=== PATIENT | female | born 1945 | race Caucasian/White ===

== ENCOUNTER 2018-01-31 00:02 | Inpatient (IN) | payer MEDICARE ==
[2018-01-31 01:22] LABS: Protime INR 1.37
[2018-01-31 01:23] LABS: Absolute Lymphocytes (CBC) 0.1 K/uL (0.7-4.9); Absolute Monocytes 0.1 K/uL (0.1-1.3); Absolute Neutrophil 1.4 K/uL (1.8-8.0); Basophils % 0.6 % (0-1.3); Eosinophils % 0.9 % (0-4.4); Hematocrit 28.1 % (36.0-45.0); Lymphocytes % 8.8 % (15.3-44.8); MCH 23.4 pg (27.0-35.0); MCV 76.4 fL (80-100); MPV 8.8 fL (7.6-11.3); RBC Red Blood Cell Count 3.68 M/uL (3.86-4.86)
[2018-01-31] MEDS ORDERED: ACETAMINOPHEN 325 MG TABLET ONE (01:24)
[2018-01-31] MEDS ORDERED: NA CHLORIDE 0.9% 1,000 ML ONE (01:25)
[2018-01-31] MEDS ORDERED: PIPER/TAZO/NS 3.375gm 3.375 GM/100 ML BAG ONE ×2 (01:25→06:30)
[2018-01-31 01:31] LABS: Urine Culture Reflex Order REFLEXED
[2018-01-31 01:31] LABS: Urine Blood 1+ (NEG); Urine Glucose NEGATIVE (NEG); Urine Protein TRACE (NEG); Urine pH 5.5 (5.0-7.0)
[2018-01-31 01:33] LABS: Urine Bacteria >50 /HPF (<20)
[2018-01-31 01:34] LABS: Urine RBC <5 /HPF (NONE SEEN)
[2018-01-31 01:44] LABS: ALT/SGPT 23 U/L (12-78); AST/SGOT 53 U/L (15-37); Albumin 2.7 g/dL (3.4-5.0); Alkaline Phosphatase 116 U/L (45-117); BUN Blood Urea Nitrogen 11 mg/dL (7-18); Bicarbonate 24 mmol/L (21-32); Bilirubin Direct 0.5 mg/dL (0-0.2); Bilirubin Total 0.9 mg/dL (0.2-1.0); CKMB Creatine Kinase MB < 1.0 ng/mL (0.3-3.6); Creatine Phosphokinase 93 U/L (26-192); Glucose Level 91 mg/dL (74-106); Lipase 493 U/L (73-393); Potassium 3.3 mmol/L (3.5-5.1); Protein, Total 6.4 g/dL (6.4-8.2); Sodium Level 141 mmol/L (136-145); Troponin (Emerg Dept Use Only) < 0.02 ng/mL (0.0-0.045)
[2018-01-31 02:17] LABS: Platelet Estimate DECR; Urine White Blood Cell Casts OK
[2018-01-31 02:18] LABS: Anisocytosis 1+; Blood Morphology Comment NOTED (NOT SEEN)
[2018-01-31] MEDS ORDERED: NA CHLORIDE 0.9% 500 ML ONE (02:21)
--- NOTE | 2018-01-31 03:50 | EDPHYS ---
Physician Documentation [facility] Name: Kady Gomez Age: 72 yrs Sex: Female : 1945 Arrival Date: 01/31/2018 Time: 00:05 Bed 8 Private MD: ED Physician Ilir Pizano HPI: 01/31 02:36 This 72 yrs old Female presents to ER via EMS with complaints of fever. gs 02:36 Onset: The symptoms/episode began/occurred yesterday. Modifying factors: there are no gs obvious modifying factors. Associated signs and symptoms: Pertinent positives: dysuria. Severity of symptoms: At their worst the symptoms were moderate in the emergency department the symptoms are unchanged. The patient has experienced similar episodes in the past, a few times. The patient has not recently seen a physician. Historical: - Allergies: 00:21 butorphanol tartrate; tl3 00:21 Cephalexin; tl3 00:21 Levofloxacin; tl3 00:21 Tramadol HCl; tl3 - Home Meds: 00:21 citalopram oral [Active]; Enalapril Oral [Active]; tl3 - PMHx: 00:21 Cirrhosis; Anemia; Hypertension; tl3 - PSHx: 00:21 Hip Replacement; tl3 - Immunization history:: Adult Immunizations unknown. - Social history:: Smoking status: unknown. - Ebola Screening: : No symptoms or risks identified at this time. ROS: 02:36 All other systems are negative. gs Exam: 02:36 Head/Face: Normocephalic, atraumatic. Eyes: Pupils equal round and reactive to light, gs extra-ocular motions intact. Lids and lashes normal. Conjunctiva and sclera are non-icteric and not injected. Cornea within normal limits. Periorbital areas with no swelling, redness, or edema. ENT: Nares patent. No nasal discharge, no septal abnormalities noted. Tympanic membranes are normal and external auditory canals are clear. Oropharynx with no redness, swelling, or masses, exudates, or evidence of obstruction, uvula midline. Mucous membranes moist. Neck: Trachea midline, no thyromegaly or masses palpated, and no cervical lymphadenopathy. Supple, full range of motion without nuchal rigidity, or vertebral point tenderness. No Meningismus. Chest/axilla: Normal chest wall appearance and motion. Nontender with no deformity. No lesions are appreciated. 02:36 Constitutional: The patient appears alert, awake. 02:36 Cardiovascular: Rate: tachycardic, Rhythm: regular, Pulses: no pulse deficits are appreciated. 02:36 ECG was reviewed by the Attending Physician. 02:39 Respiratory: Lungs have equal breath sounds bilaterally, clear to auscultation and gs percussion. No rales, rhonchi or wheezes noted. No increased work of breathing, no retractions or nasal flaring. Abdomen/GI: Soft, non-tender, with normal bowel sounds. No distension or tympany. No guarding or rebound. No evidence of tenderness throughout. Back: No spinal tenderness. No costovertebral tenderness. Full range of motion. Skin: Warm, dry with normal turgor. Normal color with no rashes, no lesions, and no evidence of cellulitis. MS/ Extremity: Pulses equal, no cyanosis. Neurovascular intact. Full, normal range of motion. Neuro: Awake and alert, GCS 15, oriented to person, place, time, and situation. Cranial nerves II-XII grossly intact. Motor strength 5/5 in all extremities. Sensory grossly intact. Cerebellar exam normal. Normal gait. Vital Signs: 00:21 BP 118 / 48; Pulse 99; Resp 18; Temp 100.6(O); Pulse Ox 98% ; tl3 01:34 BP 129 / 52; Pulse 92; Resp 18; Pulse Ox 99% on R/A; mg2 02:09 BP 124 / 53; Pulse 95; Resp 18; Temp 101.6(O); Pulse Ox 100% on R/A; mg2 04:36 BP 109 / 50; Pulse 91; Resp 19 S; Temp 99.7(O); Pulse Ox 100% on R/A; jd3 MDM: 00:32 Patient medically screened. gs 02:39 Differential diagnosis: pneumonia UTI, sepsis. Data reviewed: vital signs, nurses gs notes. Response to treatment: the patient's symptoms have mildly improved after treatment, and as a result, I will admit patient. 01/31 00:40 Order name: Basic Metabolic Panel; Complete Time: 02:10 01/31 00:40 Order name: Blood Culture Adult (2) 01/31 00:40 Order name: CBC with Diff; Complete Time: 03:51 01/31 00:40 Order name: Ckmb; Complete Time: 02:10 01/31 00:40 Order name: CPK; Complete Time: 02:10 01/31 00:40 Order name: Lactate; Complete Time: 02:10 01/31 00:40 Order name: LFT's; Complete Time: 02:10 01/31 00:40 Order name: Lipase; Complete Time: 02:10 01/31 00:40 Order name: Procalcitonin; Complete Time: 03:51 01/31 00:40 Order name: Protime (+inr); Complete Time: 02:10 01/31 00:40 Order name: Troponin (emerg Dept Use Only); Complete Time: 02:10 01/31 00:40 Order name: Urine Microscopic Only; Complete Time: 02: 01/31 01:03 Order name: Urine Dipstick--Ancillary (enter results); Complete Time: 02:10 al 01/31 01:26 Order name: CBC Smear Scan; Complete Time: 03:51 EDCO 01/31 00:40 Order name: Chest Single View XRAY 01/31 00:40 Order name: Accucheck; Complete Time: 01:33 gs 01/31 00:40 Order name: Cardiac monitoring; Complete Time: 01: 01/31 00:40 Order name: EKG - Nurse/Tech; Complete Time: 01: gs 01/31 00:40 Order name: IV Saline Lock - Large Bore; Complete Time: 01: 01/31 00:40 Order name: Labs collected and sent; Complete Time: : 01/31 00:40 Order name: O2 Per Protocol; Complete Time: : gs 01/31 01:36 Order name: Urine Culture EDMS 01/31 03:52 Order name: Magnesium 01/31 04:16 Order name: Consistent Carb (ADA) 1800 Pillo EDMS 01/31 00:40 Order name: O2 Sat Monitoring; Complete Time: :33 01/31 00:40 Order name: Urine Dipstick-Ancillary (obtain specimen); Complete Time: 01:33 gs Administered Medications: 01:32 Drug: Zosyn 3.375 grams Route: IVPB; Infused Over: 60 mins; Site: left forearm; mg2 02:30 Follow up: Response: No adverse reaction; IV Status: Completed infusion jd3 01:32 Not Given (Patient Refused): Tylenol 650 mg PO once mg2 01:33 Drug: NS 0.9% 1000 ml Route: IV; Rate: 1 bolus; Site: left forearm; mg2 02:30 Follow up: Response: No adverse reaction; IV Status: Completed infusion jd3 02:08 Drug: Tylenol 325 mg Route: PO; mg2 03:00 Follow up: Response: No adverse reaction jd3 02:18 Drug: NS 0.9% 500 ml Volume: 500 ml; Route: IV; Rate: 1 bolus; Site: left forearm; mg2 03:15 Follow up: Response: No adverse reaction; IV Status: Completed infusion jd3 04:35 Drug: Potassium Effervescent Tablet 50 mEq Route: PO; jd3 05:00 Follow up: Response: No adverse reaction jd3 Point of Care Testing: Guaiac: 01:05 Stool Guaiac: Negative; Stool Hemoccult Control: Pass; tl3 Disposition: 01/31/18 03:50 Hospitalization ordered by Lupe Callaway for Inpatient Admission. Preliminary diagnosis are Sepsis due to Escherichia coli [E. coli], Cystitis. - Bed requested for Telemetry/MedSurg (Inpatient). - Status is Inpatient Admission. jd3 - Condition is Stable. - Problem is new. - Symptoms have improved. UTI on Admission? Yes Critical care time excluding procedures: 03:33 Critical care time: Bedside Care: 10 minutes, Consultation: 10 minutes, Family gs Intervention: 10 minutes. Total time: 30 minutes Signatures: Dispatcher [employer] Mary Tabares RN RN Ilir Pizano MD MD gs Davies, Jonathon, RN RN jd3 Nakia Bowman RN RN tl3 Guanako Martinez RN RN mg2 Corrections: (The following items were deleted from the chart) 04:24 03:50 Hospitalization Ordered by A Cesia VARGAS for Inpatient Admission. Preliminary cg diagnosis is Sepsis due to Escherichia coli [E. coli]; Cystitis. Bed requested for Telemetry/MedSurg (Inpatient). Status is Inpatient Admission. Condition is Stable. Problem is new. Symptoms have improved. UTI on Admission? No. gs 05:14 04:24 01/31/2018 03:50 Hospitalization Ordered by A Cesia VARGAS for Inpatient Admission. gs Preliminary diagnosis is Sepsis due to Escherichia coli [E. coli]; Cystitis. Bed requested for Telemetry/MedSurg (Inpatient). Status is Inpatient Admission. Condition is Stable. Problem is new. Symptoms have improved. UTI on Admission? No. cg 05:18 05:14 01/31/2018 03:50 Hospitalization Ordered by A Cesia VARGAS for Inpatient Admission. jd3 Preliminary diagnosis is Sepsis due to Escherichia coli [E. coli]; Cystitis. Bed requested for Telemetry/MedSurg (Inpatient). Status is Inpatient Admission. Condition is Stable. Problem is new. Symptoms have improved. UTI on Admission? Yes. gs
--- NOTE | 2018-01-31 03:50 | ER ---
Nurse's Notes [facility] Name: Kady Gomez Age: 72 yrs Sex: Female : 1945 Arrival Date: 01/31/2018 Time: 00:05 Bed 8 Private MD: Diagnosis: Sepsis due to Escherichia coli [E. coli];Cystitis Presentation: 01/31 00:10 Presenting complaint: EMS states: pt has been weak and unable to get up out of her tl3 chair since about 3 pm. Has low grade temp 100.6, with hx of cirrhosis, Anemia, HTN and blood in stool. Had blood in stool on , but it has cleared up and she has had normal stools since. Transition of care: patient was not received from another setting of care. Onset of symptoms was January 31, 2018. Risk Assessment: Do you want to hurt yourself or someone else? Patient reports no desire to harm self or others. Initial Sepsis Screen: Does the patient meet any 2 criteria? No. Patient's initial sepsis screen is negative. Does the patient have a suspected source of infection? No. Patient's initial sepsis screen is negative. Care prior to arrival: None. 00:10 Method Of Arrival: EMS: [facility] tl3 00:10 Acuity: RANDOLPH 3 tl3 Triage Assessment: 00:21 General: Appears in no apparent distress. slender, well groomed, well developed, tl3 Behavior is calm, cooperative, appropriate for age. Pain: Denies pain. EENT: No deficits noted. Neuro: No deficits noted. Level of Consciousness is awake, alert, obeys commands, Oriented to person, place, time, situation, Appropriate for age. Cardiovascular: Patient's skin is warm and dry. Rhythm is regular. Respiratory: Airway is patent Respiratory effort is even, unlabored, Respiratory pattern is regular, symmetrical. GI: Reports stooled and urinated in brief because she was too weak to get up go to the restroom, had bloody stool on , but normal stools since. : Reports burning with urination. Derm: No signs and/or symptoms reported regarding the dermatologic system. Skin is jaundiced. Musculoskeletal: Reports weakness in generalized. Historical: - Allergies: 00:21 butorphanol tartrate; tl3 00:21 Cephalexin; tl3 00:21 Levofloxacin; tl3 00:21 Tramadol HCl; tl3 - Home Meds: 00:21 citalopram oral [Active]; Enalapril Oral [Active]; tl3 - PMHx: 00:21 Cirrhosis; Anemia; Hypertension; tl3 - PSHx: 00:21 Hip Replacement; tl3 - Immunization history:: Adult Immunizations unknown. - Social history:: Smoking status: unknown. - Ebola Screening: : No symptoms or risks identified at this time. Screenin:57 Abuse screen: Denies threats or abuse. Denies injuries from another. Nutritional mg2 screening: No deficits noted. Tuberculosis screening: No symptoms or risk factors identified. Fall Risk IV access (20 points). 01:05 Sepsis Screening: . Infection: Patient has suspected or documented infection. SIRS - tl3 Systemic Inflammatory Response Syndrome: 2 or more indicates positive screen: [heart rate greater than 90 beats per minute] Patient has a negative screen for severe sepsis based on SIRS criteria. Organ Dysfunction: One or more within 3 days of new infection:. Assessment: 01:05 Reassessment: No changes from previously documented assessment. tl3 02:38 Reassessment: Patient appears in no apparent distress at this time. Patient and/or mg2 family updated on plan of care and expected duration. Pain level reassessed. Patient is alert, oriented x 3, equal unlabored respirations, skin warm/dry/pink. 02:52 Reassessment: No changes from previously documented assessment. Patient and/or family jd3 updated on plan of care and expected duration. Pain level reassessed. Patient is alert, oriented x 3, equal unlabored respirations, skin warm/dry/pink. report received from Roxie SANTOS. 03:45 Reassessment: No changes from previously documented assessment. Patient and/or family jd3 updated on plan of care and expected duration. Pain level reassessed. Patient is alert, oriented x 3, equal unlabored respirations, skin warm/dry/pink. 04:36 Reassessment: No changes from previously documented assessment. Patient and/or family jd3 updated on plan of care and expected duration. Pain level reassessed. Patient is alert, oriented x 3, equal unlabored respirations, skin warm/dry/pink. Vital Signs: 00:21 BP 118 / 48; Pulse 99; Resp 18; Temp 100.6(O); Pulse Ox 98% ; tl3 01:34 BP 129 / 52; Pulse 92; Resp 18; Pulse Ox 99% on R/A; mg2 02:09 BP 124 / 53; Pulse 95; Resp 18; Temp 101.6(O); Pulse Ox 100% on R/A; mg2 04:36 BP 109 / 50; Pulse 91; Resp 19 S; Temp 99.7(O); Pulse Ox 100% on R/A; jd3 ED Course: 00:05 Patient arrived in ED. mg2 00:09 Nakia Bowman, RN is Primary Nurse. tl3 00:12 Triage completed. tl3 00:14 Ilir Pizano MD is Attending Physician. gs 00:21 Arm band placed on right wrist. tl3 00:57 No provider procedures requiring assistance completed. Inserted saline lock: 22 gauge mg2 in left forearm, using aseptic technique. Blood collected. 00:57 Patient has correct armband on for positive identification. Pulse ox on. NIBP on. mg2 01:05 Straight cath inserted, using sterile technique, 16 Fr. Specimen obtained. vaginal tl3 bleeding noted with inspection prior to straight cath. 01:05 Warm blanket given. Head of bed elevated. Cleaned of incontinence. pt was incontinent tl3 for stool and urine. 01:11 X-ray(s) taken. tl3 01:20 X-ray completed. Portable x-ray completed in exam room. Patient tolerated procedure mh1 well. 01:21 Chest Single View XRAY In Process Unspecified. EDMS 02:52 Primary Nurse role handed off by Nakia Bowman RN jd3 02:52 Freeman Farah RN is Primary Nurse. jd3 03:46 Lupe Callaway MD is Hospitalizing Provider. gs 05:00 Patient admitted, IV remains in place. jd3 Administered Medications: 01:32 Drug: Zosyn 3.375 grams Route: IVPB; Infused Over: 60 mins; Site: left forearm; mg2 02:30 Follow up: Response: No adverse reaction; IV Status: Completed infusion jd3 01:32 Not Given (Patient Refused): Tylenol 650 mg PO once mg2 01:33 Drug: NS 0.9% 1000 ml Route: IV; Rate: 1 bolus; Site: left forearm; mg2 02:30 Follow up: Response: No adverse reaction; IV Status: Completed infusion jd3 02:08 Drug: Tylenol 325 mg Route: PO; mg2 03:00 Follow up: Response: No adverse reaction jd3 02:18 Drug: NS 0.9% 500 ml Volume: 500 ml; Route: IV; Rate: 1 bolus; Site: left forearm; mg2 03:15 Follow up: Response: No adverse reaction; IV Status: Completed infusion jd3 04:35 Drug: Potassium Effervescent Tablet 50 mEq Route: PO; jd3 05:00 Follow up: Response: No adverse reaction jd3 Point of Care Testing: Guaiac: 01:05 Stool Guaiac: Negative; Stool Hemoccult Control: Pass; tl3 Outcome: 03:50 Decision to Hospitalize by Provider. 04:58 Admitted to Med/surg accompanied by tech, via stretcher, room 208, with chart, Report jd3 called to Hlida SANTOS 04:58 Instructed on the need for admit, Demonstrated understanding of instructions. 04:59 Condition: stable jd3 05:18 Patient left the ED. jd3 Signatures: Dispatcher [employer] EDMS Marti Stokes 1 Ilir Pizano MD MD Freeman Farah RN RN jd3 Nakia Bowman RN RN tl3 Guanako Martinez RN RN mg2 Corrections: (The following items were deleted from the chart) 00:26 00:21 GI: Reports stooled and urinated in brief because she was too weak to get up tl3 tl3 01:11 01:05 Urine collected: straight cath specimen, cloudy, Amount Returned: 150mL vaginal tl3 bleeding noted in preparation for straight cath tl3 04:40 04:36 BP 109 / 50; Pulse 91bpm; Resp 92bpm; Spontaneous; Pulse Ox 100% RA; jd3 jd3 04:50 04:36 BP 109 / 50; Pulse 91bpm; Resp 19bpm; Spontaneous; Pulse Ox 100% RA; jessed3 jd3 04:59 04:58 Admitted to Med/surg accompanied by nurse, via stretcher, room 208, with chart, jd3 Report called to Hilda mcdonough
[2018-01-31] MEDS ORDERED: ACETAMINOPHEN 500 MG TAB PO PRN (04:07)
[2018-01-31] MEDS ORDERED: POTASSIUM 25 MEQ EFFERV TAB ONE ×2 (04:31→04:34)
[2018-01-31] MEDS ORDERED: NA CHLORIDE 0.9% 1,000 ML IV SCH (05:00)
[2018-01-31] MEDS ORDERED: PIPER/TAZO/NS 3.375gm 3.375 GM/100 ML BAG IVPB SCH (06:00)
[2018-01-31 06:01] VITALS: BMI 21.9
[2018-01-31] MEDS ORDERED: INFLUENZA VACCINE (for 3y+) 0.5 ML DOSE IMVAC ONE (08:00)
[2018-01-31] MEDS ORDERED: ONDANSETRON 4 MG/2 ML VIAL IV PRN (09:39)
[2018-01-31] MEDS ORDERED: PANTOPRAZOLE 40MG TABLET PO ONE (09:40)
[2018-01-31] MEDS: CITALOPRAM 10 MG TABLET PO SCH (10:39)
--- NOTE | 2018-01-31 10:39 | RAD REPORT ---
EXAM DESCRIPTION: RAD - Chest Single View - 01/31/2018 1:21 am CLINICAL HISTORY: FEVER Chest pain. COMPARISON: Chest Single View dated 03/29/2016; Chest Single View dated 03/27/2016; Chest Single View dated 03/25/2016; Chest Pa And Lat (2 Views) dated 11/21/2015 FINDINGS: Portable technique limits examination quality. The lungs are grossly clear. The heart is normal in size. No displaced fractures.Cervical spine hardw are plate noted. IMPRESSION: No acute intrathoracic process suspected.
[2018-01-31] MEDS: D5 0.9 NS 1,000 ML IV SCH ×2 (10:40→21:37)
[2018-01-31] MEDS: PIPER/TAZO/NS 3.375gm 3.375 GM/100 ML BAG IVPB SCH ×2 (14:01→21:36)
--- NOTE | 2018-01-31 21:04 | HP ---
Date of Admission: 01/31/2018 Chief Complaint: Chills and feeling weak. History Of Present Illness: This is a 72-year-old female patient with cirrhosis of liver, lives at [facility] with her , had one episode of rectal bleeding this week on . She did not have any associated abdominal pain, nausea, vomiting, hematemesis. The bleeding stopped on its own. She did not seek any medical attention for this. The patient says that she did have such bleeding problem i n the past but has not had any episode this year. After that bleeding problem subsided, she was doin g fine but last night all of a sudden she had episode of chills while she was sitting and she was anna vering really bad. At that same time, she was having extreme generalized weakness associated with chills and her tried to help her to get up to go to bed, to lie down, but because of her generalized weakness with these chills she was not able to do and she was brought into emergency room . After she was evaluated in the ER, she was admitted to the hospital with diagnosis of urinary trac t infection and possibility of sepsis. I saw her this morning. She was lying in bed, answering all the questions appropriately, did not appear to be confused at all. Medications: According to office records she takes Belsomra 10 mg at bedtime, citalopram 20 mg daily , Hemocyte-Plus 1 tablet p.o. daily, multivitamin daily. Propranolol 10 mg p.o. 2 times a day, hold if systolic blood pressure less than 120. Pantoprazole 40 mg p.o. daily and Zofran p.r.n. Review of Systems: GI: As mentioned above. Constitutional: As mentioned above. Genitourinary: The patient denies any urinary complaints like dysuria, hematuria, etc. All other systems reviewed and negative. Allergies: CEPHALEXIN, DEMEROL, TRAMADOL, ACCORDING TO OFFICE RECORD. ACCORDING TO HOSPITAL RECORD, SHE IS ALSO LISTED ALLERGIC TO LEVAQUIN. Past Medical History: Significant for pancytopenia, gastroesophageal reflux disease, biliary cirrhos is, hypertension, osteoarthritis at multiple sites, depression, allergic rhinitis, insomnia, iron def iciency anemia. For cirrhosis of liver, the patient was seeing Dr. Angela, [facility] in [place] i n the past but she decided not to see him anymore. Dr. Angela also had asked the patient to start th inking about liver transplant and the patient has decided not to pursue that and she no longer follow s up with him. Advance Directive: As per my discussion with the patient today, she does not want any CPR, defibrill ation or ventilator support and DNR order will be written in the chart. Past Surgical History: Liver biopsy in 2003, cholecystectomy, hip replacement, transsphenoidal resec tion of pituitary adenoma in the mid to late , right femur fracture 2010, carcinoma of vulva for w hich she had a vulvectomy done in 2010. Family History: Significant for glioblastoma, lung cancer, hypertension. Social History: Negative for smoking and alcohol use. She is a retired nurse and . Lives at home with . Physical Examination: Vital Signs: Her maximum temperature was 101.6 degrees Fahrenheit at 2:00 a.m. today, last temperatu re 98.4, pulse 68, respiratory rate 18, blood pressure 116/54, oxygen saturation 99%, height 5 feet 8 inches, weight 144 pounds. General: Awake, alert, oriented, not in distress. HEENT: Head atraumatic, normocephalic. Conjunctivae nonerythematous. Sclerae white. Mouth, no thr ush or edema noted. Ears/Nose, no mass, lesion, discharge noted. Neck: Supple. No JVD, lymph nodes, bruit, thyromegaly noted. Lungs: Bilateral good equal air entry. Clear to auscultation. No rhonchi. No rales. Heart: Normal heart sounds, no murmur or gallop. Abdomen: Soft, bowel sounds normal. No guarding, rigidity, tenderness, mass, hepatosplenomegaly, dis tention, or bruit noted. Extremities: No leg edema. No calf tenderness. Skin: No rash, ulcer, cellulitis. Lymphatics: No lymph node enlargement in neck, supraclavicular, infraclavicular region. Neuro: No focal neurological deficit. Chest: Unremarkable. External Genitalia: Deferred. Rectal: Deferred. Laboratory Data: White count 1.7, hemoglobin 8.6, platelets 82, INR 1.37. Sodium 141, potassium 3.3 , chloride 107, bicarb 24, BUN 11, creatinine 1.10, glucose 91, total bilirubin 0.5, SGOT 53, SGPT 23 , alkaline phosphatase 116, troponin less than 0.02, lipase 493, albumin 2.7, procalcitonin 7.19. La ctic acid 3.0 on the first one, second set 2.3. Magnesium 1.9. Urinalysis positive for nitrite, est erase 1+, WBC more than 50, bacteria more than 50. Impression: 1.Urinary tract infection. 2.Rule out sepsis. 3.Pancytopenia. 4.Hypokalemia. 5.Biliary cirrhosis. 6.Hypertension. 7.Gastroesophageal reflux disease. 8.Osteoarthritis, multiple sites. 9.Depression. 10.Insomnia. 11.Iron deficiency anemia. Plan: Admit the patient to hospital for further evaluation and management of this problem. The tejas ent is appropriate for inpatient and is expected to spend 2 midnights in hospital. We will continue her home medications per order in the chart. Air mattress was ordered. SCD was ordered for DVT prop hylaxis. We will consult Physical Therapy to help ambulate the patient. DNR order was written in chart per patient's decision. Empiric antibiotic Zosyn will be continued at this point and we will follow up on culture results and depending on the culture results, we will decide culture specific a ntibiotic. IV fluid will be given per order. We will repeat blood work tomorrow. When I saw the aleksey iverson, she had liquid stool inside her pull-ups and this was covering her perineal area. Nurse was m mar aware of that and in fact, the patient did not even recognize that she had this bowel incontinenc e and she did not report anything until I saw it on my exam. We will order a stool for clostridium d ifficile and stool culture as well. For her pancytopenia, please make a note that this is her chroni c problem due to her underlying cirrhosis of liver, does not require any intervention. About 6 month s ago in July 2017 on outpatient basis her white count was 2.1, hemoglobin was 10.4, platelets 126 a t that time. We will consider blood transfusion if it becomes necessary during this hospitalization. There is no evidence of any active GI bleeding problem. DMITRI/MODL Voice ID: [id number]
[2018-01-31] MEDS: PROPRANOLOL HCL 10 MG TAB PO SCH (21:35)
[2018-02-01] MEDS: PIPER/TAZO/NS 3.375gm 3.375 GM/100 ML BAG IVPB SCH ×3 (06:00→21:20)
[2018-02-01 06:16] LABS: Albumin 2.4 g/dL (3.4-5.0); Bilirubin Total 0.8 mg/dL (0.2-1.0); Magnesium 2.1 mg/dL (1.8-2.4); Protein, Total 5.6 g/dL (6.4-8.2)
[2018-02-01 06:17] LABS: Absolute Lymphocytes (CBC) 0.3 K/uL (0.7-4.9); Absolute Monocytes 0.1 K/uL (0.1-1.3); Absolute Neutrophil 0.9 K/uL (1.8-8.0); Basophils % 1.4 % (0-1.3); Eosinophils % 1.3 % (0-4.4); Hematocrit 24.4 % (36.0-45.0); Lymphocytes % 19.8 % (15.3-44.8); MCH 23.4 pg (27.0-35.0); MCV 77.2 fL (80-100); MPV 9.7 fL (7.6-11.3); RBC Red Blood Cell Count 3.17 M/uL (3.86-4.86)
[2018-02-01] MEDS: PANTOPRAZOLE 40MG TABLET PO SCH (06:21)
[2018-02-01 06:47] LABS: Anisocytosis 2+; Blood Morphology Comment NOTED (NOT SEEN); Hypochromasia 2+; Platelet Estimate DECR; Urine White Blood Cell Casts OK
[2018-02-01] MEDS ORDERED: VANCOMYCIN 500 MG in NA CHLORIDE 0.9% 100 ML IVPB SCH (09:00)
[2018-02-01] MEDS ORDERED: VANCOMYCIN 1.75 GM in NA CHLORIDE 0.9% 500 ML IVPB ONE (09:00)
--- NOTE | 2018-02-01 10:10 | EKG ---
Test Date: 2018-01-31 Test Time: 01:29:52 Customer Service Sales Consultant: MG MEASUREMENT RESULTS: Intervals: Rate: 95 MT: 258 QRSD: 100 QT: 472 QTc: 593 Dixon: P: MT: 258 QRS: 9 T: 42 INTERPRETIVE STATEMENTS: Sinus rhythm with 1st degree AV block Nonspecific T wave abnormality Prolonged QT Abnormal ECG Compared to ECG 03/17/2011 18:14:48 First degree AV block now present T-wave abnormality now present Prolonged QT interval now present Electronically Signed On 02-01-18 10:09:45 CDT by Davian Deluca
[2018-02-01] MEDS: CITALOPRAM 10 MG TABLET PO SCH (10:45)
[2018-02-01] MEDS: PROPRANOLOL HCL 10 MG TAB PO SCH ×2 (10:45→20:50)
[2018-02-01] MEDS: FE SULF/FA/VIT B COMP & C TAB PO SCH (10:45)
--- NOTE | 2018-02-01 11:51 | PN ---
Date of Progress Note: 02/01/2018 Subjective: The patient was seen this morning for followup. She was lying in bed, not in distress. Denies any abdominal pain, nausea, or vomiting. No shortness of breath. Reports that her appetite was good yesterday. Physical Examination: Vital Signs: Reviewed. Last temperature 98.1, pulse 64, respiratory rate 16, and blood pressure 119/51. HEENT: Unremarkable. Lungs: Clear to auscultation. Heart: Sounds normal. Abdomen: Soft. Bowel sounds normal. No guarding, rigidity, tenderness, or distention. Extremities: No leg edema. Laboratory Data: White count 1.4, hemoglobin 7.4, platelets 69, and neutrophils 68%. Sodium 145, potassium 4, chloride 116, bicarb 23, BUN 13, creatinine 0.90, glucose 90, and magnesium 2.1. SGOT 48, total bilirubin 0.8. Procalcitonin 25.57. Urine culture pending. Blood culture negative so far. Impression: 1. Urinary tract infection. 2. Rule out sepsis. 3. Pancytopenia. 4. Biliary cirrhosis. Plan: We will go ahead and continue current empiric antibiotics, which is Zosyn and add Vancomycin. Continue IV fluid. Monitor the patient's hemoglobin. If hemoglobin drops less than 7, we will consider blood transfusion. Physical Therapy to help ambulate the patient. We will repeat blood work tomorrow morning. DMITRI/MODL Voice ID: [id number] Report ID: [id number] GURINDER
[2018-02-01] MEDS: D5 0.9 NS 1,000 ML IV SCH ×2 (12:29→20:51)
[2018-02-02] MEDS: PIPER/TAZO/NS 3.375gm 3.375 GM/100 ML BAG IVPB SCH ×3 (05:10→21:10)
[2018-02-02] MEDS: PANTOPRAZOLE 40MG TABLET PO SCH (05:34)
[2018-02-02 06:44] LABS: Absolute Lymphocytes (CBC) 0.3 K/uL (0.7-4.9); Absolute Monocytes 0.1 K/uL (0.1-1.3); Absolute Neutrophil 0.8 K/uL (1.8-8.0); Basophils % 1.5 % (0-1.3); Eosinophils % 3.7 % (0-4.4); Hematocrit 22.6 % (36.0-45.0); MCH 23.4 pg (27.0-35.0); MPV 10.6 fL (7.6-11.3); Monocytes % 7.2 % (3.3-12.3); RBC Red Blood Cell Count 2.93 M/uL (3.86-4.86)
[2018-02-02 07:01] LABS: Magnesium 1.8 mg/dL (1.8-2.4); Potassium 3.9 mmol/L (3.5-5.1)
[2018-02-02] MEDS ORDERED: D5 0.9 NS 1,000 ML IV SCH (08:00)
[2018-02-02] MEDS: FE SULF/FA/VIT B COMP & C TAB PO SCH (09:45)
[2018-02-02] MEDS: CITALOPRAM 10 MG TABLET PO SCH (09:45)
[2018-02-02] MEDS: VANCOMYCIN 1.25 GM in NA CHLORIDE 0.9% 250 ML IVPB SCH (09:46)
[2018-02-02] MEDS: PROPRANOLOL HCL 10 MG TAB PO SCH ×2 (10:19→21:11)
--- NOTE | 2018-02-02 11:16 | PN ---
Date of Progress Note: 02/02/2018 Subjective: The patient was seen this morning for followup. No new complaints or problems reported by patient. Overall, she feels better compared to how she was when she first came in. She reports that yesterday she did participate with physical therapy. Denies any abdominal pain, nausea, vomiting, shortness of breath. Appetite is fair to good she describes. Physical Examination: Vital signs: Reviewed. Last temperature 98.2, pulse 63, respiratory rate 18, blood pressure 134/63, maximum temperature in last 24 hours is 100.1. General: The patient lying in bed, not in distress. HEENT: Unremarkable. Lungs: Clear to auscultation. Heart: Sounds normal. Abdomen: Soft. Bowel sounds normal. No guarding, rigidity, tenderness, distention. Extremity: No leg edema. Laboratory Data: White count 1.3, yesterday it was 1.4; hemoglobin 6.8, yesterday it was 7.4, upon admission it was 8.6; platelets today 81, yesterday it was 69, upon admission it was 82. Differential on the white count 66% is neutrophils. Sodium 144, potassium 3.9, chloride 115, bicarb 23, BUN 14, creatinine 1, glucose 88, magnesium 1.8, Procalcitonin 14.61 and it was 25.57 yesterday. Urine culture is growing E coli. Blood cultures negative so far. E coli is sensitive to Zosyn that the patient is currently on. Impression: 1. Urinary tract infection. 2. Rule out sepsis. 3. Pancytopenia. 4. Biliary cirrhosis. Plan: The patient's hemoglobin is lower today compared to yesterday. We will go ahead and order 2 units of blood transfusion and reduce IVF to 30cc/hr. Platelet count is low but stable. Absolute neutrophil count is more than 500. No need for any Neupogen at this point, but we will continue to monitor that. The patient was placed on precaution yesterday where strict hand washing was advised. Procalcitonin level is better today. Vancomycin was added yesterday because the patient's procalcitonin level had gone up yesterday compared to admission and we will continue with this current combination, which is Zosyn and vancomycin together. I will see her tomorrow for followup. Details and plan of treatment discussed with her. DMITRI/MODL Voice ID: [id number] Report ID: [id number] GURINDER
[2018-02-02] MEDS ORDERED: NA CHLORIDE 0.9% 250 ML ONE (11:37)
[2018-02-02] MEDS ORDERED: FUROSEMIDE 20 MG/ 2ML VIAL IV ONE (17:00)
[2018-02-02 19:15] LABS: Hematocrit 29.2 % (36.0-45.0)
[2018-02-03] MEDS: PANTOPRAZOLE 40MG TABLET PO SCH (05:31)
[2018-02-03] MEDS: PIPER/TAZO/NS 3.375gm 3.375 GM/100 ML BAG IVPB SCH ×3 (05:38→21:29)
[2018-02-03 05:46] LABS: Absolute Lymphocytes (CBC) 0.4 K/uL (0.7-4.9); Absolute Monocytes 0.2 K/uL (0.1-1.3); Absolute Neutrophil 1.2 K/uL (1.8-8.0); Basophils % 0.7 % (0-1.3); Eosinophils % 3.7 % (0-4.4); Hematocrit 27.5 % (36.0-45.0); Lymphocytes % 20.8 % (15.3-44.8); MCH 24.1 pg (27.0-35.0); MCV 77.7 fL (80-100); MPV 10.1 fL (7.6-11.3); Monocytes % 10.6 % (3.3-12.3); RBC Red Blood Cell Count 3.54 M/uL (3.86-4.86)
[2018-02-03 05:50] LABS: Magnesium 1.6 mg/dL (1.8-2.4); Potassium 3.5 mmol/L (3.5-5.1)
[2018-02-03 06:15] LABS: Anisocytosis 1+; Blood Morphology Comment NOTED (NOT SEEN); Hypochromasia 1+; Macrocytosis 1+; Platelet Estimate DECR; Polychromasia SLIGHT; Urine White Blood Cell Casts OK
[2018-02-03] MEDS ORDERED: MAGNESIUM SULFATE 1 gm IVPB 1 GM/100 ML BAG IV ONE (06:21)
[2018-02-03] MEDS ORDERED: POTASSIUM 25 MEQ EFFERV TAB PO ONE (06:24)
--- NOTE | 2018-02-03 08:34 | PN ---
Date of Progress Note: 02/03/2018 History Of Present Illness: The patient was seen this morning for followup. She was sitting in the chair, feeling much better today. Yesterday, after 1 unit of blood transfusion, nurse contacted and informed me that after she completed blood transfusion, she noted that the patient was having wheezin g. Her IV fluid was at 30 cc/hour, but after this wheezing problem was reported, Lasix 20 mg IV x1 d ose was ordered and IV fluid was discontinued. The patient's condition has improved. This morning, she is feeling fine. She feels stronger and better than before as she reports. Physical Examination: Vital Signs: Reviewed. Last temperature 98.9, pulse 66, respiratory rate 18, blood pressure 163/65, oxygen saturation 95% on room air. HEENT: Unremarkable. Lungs: Bilateral good equal air entry. Presence of minimum right basal rales noted. Not any respir atory distress. No wheezing. Heart: Heart sounds normal. Abdomen: Soft. Bowel sounds normal. No guarding, rigidity, tenderness, or distention. Extremities: No leg edema. Laboratory Data: White count 1.8, hemoglobin 8.5, platelets 76. Sodium 144, potassium 3.5, chloride 113, bicarb 23, BUN 12, creatinine 0.90, glucose 79, magnesium 1.6, procalcitonin 8.43. Stool C dif f pending. Blood culture negative. Urine culture growing E. coli. Impression: 1.Urinary tract infection. 2.Pancytopenia. 3.Biliary cirrhosis. 4.Hypomagnesemia. Plan: We will go ahead and continue current medications, which is IV Zosyn and IV vancomycin. We wi ll probably continue vancomycin for another day or 2 days. Our plan is to possibly discharge her to go home on Thursday with oral antibiotics. We will probably plan to discharge her to go home with Bact rim. The patient's overall condition is improving very well. I have encouraged her to go ahead and ambulate. There is no need for second unit of blood transfusion considering hemoglobin is 8.5 today. Replace electrolyte per protocol. DMITRI/MODL Voice ID: [id number] Report ID: [id number]
[2018-02-03] MEDS: PROPRANOLOL HCL 10 MG TAB PO SCH ×2 (09:45→21:25)
[2018-02-03] MEDS: CITALOPRAM 10 MG TABLET PO SCH (09:46)
[2018-02-03] MEDS: FE SULF/FA/VIT B COMP & C TAB PO SCH (09:46)
[2018-02-03] MEDS: VANCOMYCIN 1.25 GM in NA CHLORIDE 0.9% 250 ML IVPB SCH (09:46)
[2018-02-04 05:32] LABS: Magnesium 1.8 mg/dL (1.8-2.4); Potassium 3.5 mmol/L (3.5-5.1)
[2018-02-04] MEDS ORDERED: MAGNESIUM SULFATE 1 gm IVPB 1 GM/100 ML BAG IV ONE (06:20)
[2018-02-04] MEDS ORDERED: POTASSIUM 25 MEQ EFFERV TAB PO ONE (06:21)
[2018-02-04] MEDS: PANTOPRAZOLE 40MG TABLET PO SCH (06:41)
[2018-02-04] MEDS: PIPER/TAZO/NS 3.375gm 3.375 GM/100 ML BAG IVPB SCH ×3 (06:42→20:42)
[2018-02-04 08:54] VITALS: O2SAT 96
[2018-02-04] MEDS: CITALOPRAM 10 MG TABLET PO SCH (10:23)
[2018-02-04] MEDS: FE SULF/FA/VIT B COMP & C TAB PO SCH (10:23)
[2018-02-04] MEDS: PROPRANOLOL HCL 10 MG TAB PO SCH ×2 (10:23→20:37)
[2018-02-04] MEDS: VANCOMYCIN 1.25 GM in NA CHLORIDE 0.9% 250 ML IVPB SCH (10:42)
--- NOTE | 2018-02-04 12:24 | PN ---
Date of Progress Note: 02/04/2018 Subjective: The patient was seen this morning for followup, lying in bed, not in any distress. Seun es any complaints. The patient reported that yesterday she did ambulate with physical therapy. Her appetite is good, but she does not like hospital food as she says. Denies any nausea, vomiting, abdo oliva pain. Reports having bowel movement yesterday. Physical Examination: Vital signs: Reviewed. She remains afebrile. Last temperature 98.4, pulse 62, respiratory rate 18, blood pressure 153/67. HEENT: Unremarkable. Lungs: Clear to auscultation. Heart: Sounds normal. Abdomen: Soft. Bowel sounds normal. No guarding, rigidity, tenderness, or distention. Extremities: No leg edema. Laboratory Data: Sodium 143, potassium 3.5, chloride 112, bicarb 25, BUN 13, creatinine 0.90, glucos e 82, magnesium 1.8. Stool C diff negative. Blood culture negative. Urine culture, E coli. Impression: 1.Urinary tract infection. 2.Pancytopenia. 3.Biliary cirrhosis. 4.Hypomagnesemia. Plan: We will go ahead and continue current medications. Continue current empiric vancomycin along with culture specific antibiotic which is Zosyn. We will repeat blood work tomorrow morning includin g procalcitonin and CBC. Ambulation was encouraged today. Possible discharge to go home tomorrow with oral antibiotics. Details and plan of treatment discussed with cecilio patient. DMITRI/MODL Voice ID: [id number] Report ID: [id number]
[2018-02-05] MEDS: PANTOPRAZOLE 40MG TABLET PO SCH (05:45)
[2018-02-05] MEDS: PIPER/TAZO/NS 3.375gm 3.375 GM/100 ML BAG IVPB SCH (05:45)
[2018-02-05 06:07] LABS: Absolute Lymphocytes (CBC) 0.5 K/uL (0.7-4.9); Absolute Monocytes 0.2 K/uL (0.1-1.3); Absolute Neutrophil 1.5 K/uL (1.8-8.0); Basophils % 1.7 % (0-1.3); Eosinophils % 5.5 % (0-4.4); Lymphocytes % 20.1 % (15.3-44.8); MCH 25.2 pg (27.0-35.0); MCV 78.6 fL (80-100); MPV 9.8 fL (7.6-11.3); Monocytes % 7.5 % (3.3-12.3)
[2018-02-05 06:17] LABS: Potassium 3.9 mmol/L (3.5-5.1)
[2018-02-05] MEDS ORDERED: POTASSIUM CL SA 10 MEQ TAB PO ONE (06:27)
[2018-02-05 07:28] LABS: Anisocytosis 2+; Blood Morphology Comment NOTED (NOT SEEN); Hypochromasia 2+; Platelet Estimate DECR; Poikilocytosis 1+; Polychromasia 1+; Urine White Blood Cell Casts OK
[2018-02-05] MEDS ORDERED: SMZ./TMP. 800/160 MG TABLET PO ONE (08:31)
[2018-02-05] MEDS: PROPRANOLOL HCL 10 MG TAB PO SCH (08:59)
[2018-02-05] MEDS: FE SULF/FA/VIT B COMP & C TAB PO SCH (08:59)
[2018-02-05] MEDS: CITALOPRAM 10 MG TABLET PO SCH (08:59)
[2018-02-05 10:49] VITALS: BP 141/60; TEMP 98.6
--- NOTE | 2018-02-06 04:22 | DS ---
Date of Discharge: 02/05/2018 Disposition: Discharged to go home. Physical Examination: HEENT: Unremarkable. Lungs: Clear to auscultation. Heart: Sounds normal. Abdomen: Soft. Bowel sounds normal. No guarding, rigidity, tenderness, or distention. Extremities: No leg edema. Hospital Course: A 72-year-old female patient admitted to the hospital with complaints of having chi lls and feeling weak. Please see dictated H and P for more information. The patient was admitted to the hospital with urinary tract infection and we were concerned about possibility of sepsis. Her ur ine culture came back positive for E. coli and it was sensitive to Zosyn that the patient was getting during this hospitalization. Blood culture remained negative. Her initial white count was 1.7 and procalcitonin level was 7.19. When I saw her on the day of admission, I noted that she had liquidy s tool covering her entire anterior perineal aspect. Next day, her procalcitonin level went up to 24 a nd we added vancomycin empiric treatment. Subsequently with combination of Zosyn and vancomycin, her condition improved. Last procalcitonin level today was 3.39. Her lowest white count was 1.3 on , and lowest hemoglobin was also on the same day, 6.8. A 2 units of packed red cell blood tra nsfusion was ordered. The patient received 1 unit of packed red cell blood transfusion after that. She had some wheezing as reported by nursing staff, so second unit was canceled. Lasix 20 mg IV x1 d ose was given and her condition improved. Her post transfusion hemoglobin was 9.1. Last hemoglobin today was 8.3, white count 2.3, platelet count 80. The patient has chronic problem with pancytopenia and due to her underlying biliary cirrhosis. Last chemistry today sodium 144, potassium 3.9, chlori de 113, bicarb 24, BUN 14, creatinine 0.90, glucose 90. Stool C. diff came back negative. The patie nt started ambulating well and overall her condition improved. Today, she feels a lot better and was discharged to go home in stable condition with following discharge medication and instructions. Discharge Medications And Instructions: 1.Continue all prior home medications. 2.Take Bactrim DS 1 tablet by mouth 2 times a day for 10 days. 3.Follow up at my office in 2 weeks. Final Diagnoses: 1.Urinary tract infection. 2.Pancytopenia. 3.Hypokalemia. 4.Biliary cirrhosis. 5.Hypertension. 6.Gastroesophageal reflux disease. 7.Osteoarthritis, multiple sites. 8.Depression. 9.Insomnia. 10.Iron deficiency anemia. DMITRI/MODL Voice ID: [id number] Report ID: [id number]
== END 2018-02-05 11:36 | disposition home or self-care (01) | DRG 690 ==
LOC: ER 00:02 → ERHOLD 04:02 → 2ND 04:44
PROVIDERS: ADMIT Internal Medicine; ATTEND Internal Medicine
PROC: 30233N1 Transfusion of Nonautologous Red Blood Cells into Peripheral Vein, Percutaneous Approach (ICD-10-PCS; principal; 2018-02-02)
DX: N39.0 Urinary tract infection, site not specified (principal); D61.818 Other pancytopenia; K74.5 Biliary cirrhosis, unspecified; E87.6 Hypokalemia; B96.20 Unspecified Escherichia coli [E. coli] as the cause of diseases classified elsewhere; I10 Essential (primary) hypertension; Z66 Do not resuscitate; K21.9 Gastro-esophageal reflux disease without esophagitis; M19.90 Unspecified osteoarthritis, unspecified site; F32.9 Major depressive disorder, single episode, unspecified; G47.00 Insomnia, unspecified; D50.9 Iron deficiency anemia, unspecified; Z88.6 Allergy status to analgesic agent; Z88.1 Allergy status to other antibiotic agents; Z88.8 Allergy status to other drugs, medicaments and biological substances; Z85.89 Personal history of malignant neoplasm of other organs and systems; E83.42 Hypomagnesemia
CPT/HCPCS: 36415; 51702; 71045; 80048; 80053; 80076; 80202; 81003; 81015; 82140; 82550; 82553; 83605; 83690; 83735; 84132; 84145; 84484; 85014; 85018; 85025; 85610; 86850; 86900; 86901; 87040; 87045; 87046; 87077; 87086; 87088; 87186; 87493; 93005; 96361; 96365; 97163; 99285; J1940; J2543; J3475; J7030; P9016

== ENCOUNTER 2018-02-12 19:26 | Observation (INO) | payer MEDICARE ==
--- NOTE | 2018-02-12 20:55 | RAD REPORT ---
EXAM DESCRIPTION: RAD - Pelvis - 02/12/2018 8:47 pm CLINICAL HISTORY: Pelvic pain status post injury FINDINGS: No fracture or dislocation is seen. Visualized right hip prosthesis is in good position. Calcification the pelvis likely represents calcified uterine fibroid. The bones are osteoporotic
--- NOTE | 2018-02-12 20:56 | RAD REPORT ---
EXAM DESCRIPTION: RAD - Femur Right - 02/12/2018 8:47 pm CLINICAL HISTORY: Right leg pain FINDINGS: No fracture is seen. The bones are osteoporotic. No evidence of loosening of a right hip prosthesis
--- NOTE | 2018-02-12 20:57 | RAD REPORT ---
EXAM DESCRIPTION: RAD - Tib Fib Right - 02/12/2018 8:48 pm CLINICAL HISTORY: Right leg pain FINDINGS: No fracture is seen. The bones are osteoporotic
--- NOTE | 2018-02-12 21:03 | RAD REPORT ---
EXAM DESCRIPTION: Marjant Single View02/12/2018 8:52 pm CLINICAL HISTORY: Chest pain COMPARISON: January 31, 2018 FINDINGS: The lungs appear clear of acute infiltrate. The heart is normal size. Small pleural effus ions are unchanged
[2018-02-12] MEDS ORDERED: NA CHLORIDE 0.9% 1,000 ML ONE (22:04)
[2018-02-12] MEDS ORDERED: NA CHLORIDE 0.9% 250 ML ONE (22:04)
[2018-02-12 22:45] LABS: Absolute Lymphocytes (CBC) 0.5 K/uL (0.7-4.9); Absolute Monocytes 0.2 K/uL (0.1-1.3); Absolute Neutrophil 1.6 K/uL (1.8-8.0); Eosinophils % 3.2 % (0-4.4); Hematocrit 26.2 % (36.0-45.0); Lymphocytes % 20.7 % (15.3-44.8); MCV 80.8 fL (80-100); MPV 8.9 fL (7.6-11.3); Monocytes % 8.9 % (3.3-12.3); RBC Red Blood Cell Count 3.24 M/uL (3.86-4.86)
[2018-02-12 22:47] LABS: Protime INR 1.41
[2018-02-12 23:09] LABS: ALT/SGPT 19 U/L (12-78); AST/SGOT 40 U/L (15-37); Albumin 2.4 g/dL (3.4-5.0); Alkaline Phosphatase 74 U/L (45-117); BUN Blood Urea Nitrogen 11 mg/dL (7-18); Bicarbonate 25 mmol/L (21-32); Bilirubin Direct 0.5 mg/dL (0-0.2); Bilirubin Total 0.8 mg/dL (0.2-1.0); Glucose Level 92 mg/dL (74-106); Magnesium 1.7 mg/dL (1.8-2.4); NT PRO-BNP 512 pg/mL (<125); Potassium 4.5 mmol/L (3.5-5.1); Protein, Total 6.1 g/dL (6.4-8.2); Sodium Level 141 mmol/L (136-145); Troponin (Emerg Dept Use Only) < 0.02 ng/mL (0.0-0.045)
--- NOTE | 2018-02-13 00:14 | ER ---
Nurse's Notes [facility] Name: Kady Gomez Age: 72 yrs Sex: Female : 1945 Arrival Date: 02/12/2018 Time: 19:27 Bed 20 Private MD: Diagnosis: Fall on same level from slipping, tripping and stumbling;Weakness-General Presentation: 02/12 19:26 Presenting complaint: EMS states: Pt reports she had a fall at 10 am and could not get ea to a phone, got home around 6pm and called ambulance. Pt reports her knee gave out and she slid down the wall onto her bottom. Pt denies LOC. Pt alert and oriented x 4. Care prior to arrival: None. Mechanism of Injury: Fall from standing position. Trauma event details: Injury occurred in the [facility], Injury occurred: at home. Injury occurred: February 12, 2018 Injury occurred at: 19:41. 19:30 Transition of care: patient was not received from another setting of care. Onset of ea symptoms was February 12, 2018. Risk Assessment: Do you want to hurt yourself or someone else? Patient reports no desire to harm self or others. Initial Sepsis Screen: Does the patient meet any 2 criteria? No. Patient's initial sepsis screen is negative. Does the patient have a suspected source of infection? No. Patient's initial sepsis screen is negative. 19:38 Acuity: RANDOLPH 3 ea 19:38 Method Of Arrival: EMS: [facility] ea Trauma Activation: Not Applicable Physician: ED Physician; Name: ; Notified At: ; Arrived At: Physician: General Surgeon; Name: ; Notified At: ; Arrived At: Physician: Radiology; Name: ; Notified At: ; Arrived At: Physician: Respiratory; Name: ; Notified At: ; Arrived At: Physician: Lab; Name: ; Notified At: ; Arrived At: Historical: - Allergies: 19:49 butorphanol tartrate; ea 19:49 Levofloxacin; ea 19:49 Cephalexin; ea 19:49 Tramadol HCl; ea - Home Meds: 19:49 citalopram oral [Active]; Enalapril Oral [Active]; ea - PMHx: 19:49 Anemia; Cirrhosis; Hypertension; ea - PSHx: 19:49 Hip Replacement; ea - Immunization history:: Adult Immunizations up to date. - Social history:: Smoking status: Patient/guardian denies using tobacco. - Immunization history: Last tetanus immunization: unknown. - Ebola Screening: : No symptoms or risks identified at this time. Screenin:46 Abuse screen: Denies threats or abuse. Nutritional screening: No deficits noted. ea Tuberculosis screening: No symptoms or risk factors identified. Fall Risk None identified. Primary Survey: 19:42 A: Airway: patent. Breathing/Chest: Respiratory pattern: regular, Respiratory effort: ea spontaneous, unlabored, Breath sounds: clear, bilaterally. Chest inspection: symmetrical rise and fall of the chest. Circulation: Heart tones present. Skin color: pink, Skin temperature: warm. Disability Alert. 21:00 Reassessment Airway Airway Patent Breathing/Chest Respiratory pattern Regular ea Respiratory effort Spontaneous Unlabored Breath sounds Clear. Secondary Survey: 19:43 HEENT: No deficits noted. Gastrointestinal: Abdomen is soft, Bowel sounds present in ea all quadrants. : No signs and/or symptoms were reported regarding the genitourinary system. Musculoskeletal: Reports pain in right knee. Assessment: 19:41 General: Appears in no apparent distress. Behavior is calm, cooperative, appropriate ea for age. Pain: Complains of pain in right knee Pain currently is 8 out of 10 on a pain scale. Quality of pain is described as aching. Neuro: Level of Consciousness is awake, alert, obeys commands. EENT: No signs and/or symptoms were reported regarding the EENT system. Cardiovascular: Heart tones S1 S2 present Patient's skin is warm and dry. Respiratory: Airway is patent Respiratory effort is even, unlabored, Respiratory pattern is regular, symmetrical, Breath sounds are clear bilaterally. GI: Abdomen is non-distended, Bowel sounds present X 4 quads. Derm: Skin is pink, warm \T\ dry. Musculoskeletal: Reports pain in right leg. 20:30 Reassessment: Taken to radiology via stretcher per central supply technician. ea 21:50 Reassessment: Patient and/or family updated on plan of care and expected duration. Pain ea level reassessed. Patient is alert, oriented x 3, equal unlabored respirations, skin warm/dry/pink. 22:30 Reassessment: Patient and/or family updated on plan of care and expected duration. Pain ea level reassessed. Patient is alert, oriented x 3, equal unlabored respirations, skin warm/dry/pink. 23:30 Reassessment: Patient and/or family updated on plan of care and expected duration. Pain ea level reassessed. Patient is alert, oriented x 3, equal unlabored respirations, skin warm/dry/pink. 02/13 00:06 Reassessment: Patient and/or family updated on plan of care and expected duration. Pain ea level reassessed. Patient is alert, oriented x 3, equal unlabored respirations, skin warm/dry/pink. 01:59 Reassessment: Patient and/or family updated on plan of care and expected duration. Pain ea level reassessed. Patient is alert, oriented x 3, equal unlabored respirations, skin warm/dry/pink. Report called to Yoan SANTOS on second floor. Vital Signs: 02/12 19:26 BP 144 / 78; Pulse 63; Resp 18; Temp 98; Pulse Ox 100% ; Weight 65.32 kg; Height 5 ft. ea 8 in. (172.72 cm); Pain 8/10; 20:10 BP 98 / 64; Pulse 62; Resp 16; Pulse Ox 99% on R/A; mt 21:51 BP 136 / 52; Pulse 61; Resp 17; Pulse Ox 99% on R/A; mt 23:13 BP 117 / 43; Pulse 58; Resp 16; Pulse Ox 98% on R/A; mt 23:36 BP 134 / 62 Supine; Pulse 69; mt 23:36 BP 136 / 98 Sitting; Pulse 66; mt 23:36 BP 116 / 91 Standing; Pulse 82; mt 02/13 00:16 BP 128 / 54; Pulse 60; Resp 18; Pulse Ox 97% on R/A; ea 01:55 BP 134 / 62; Pulse 60; Resp 18; Temp 97.6; Pulse Ox 98% ; ea 02/12 19:26 Body Mass Index 21.89 (65.32 kg, 172.72 cm) ea Sherman Coma Score: 02/12 19:26 Eye Response: spontaneous(4). Verbal Response: oriented(5). Motor Response: obeys ea commands(6). Total: 15. Trauma Score (Adult): 19:26 Eye Response: spontaneous(1); Verbal Response: oriented(1); Motor Response: obeys ea commands(2); Systolic BP: > 89 mm Hg(4); Respiratory Rate: 10 to 29 per min(4); Haley Score: 15; Trauma Score: 12 ED Course: 19:26 Arm band placed on right wrist. Patient placed in an exam room, on a stretcher. ea 19:26 Patient has correct armband on for positive identification. Bed in low position. Call ea light in reach. Side rails up X2. 19:27 Patient arrived in ED. am2 19:29 Mars Macario PA is PHCP. cp 19:29 Giovanni Charles MD is Attending Physician. cp 19:38 Treasure Man RN is Primary Nurse. ea 19:41 Triage completed. ea 19:47 Patient maintains SpO2 saturation greater than 95% on room air. Thermoregulation: warm ea blanket given to patient. 20:37 Patient moved to radiology via stretcher. az 20:48 X-ray completed. Patient tolerated procedure well. mh1 20:49 XRAY Pelvis In Process Unspecified. EDMS 20:49 XRAY Femur RIGHT In Process Unspecified. EDMS 20:49 XRAY Tib Fib RIGHT In Process Unspecified. EDMS 20:49 XRAY Chest (1 view) In Process Unspecified. EDMS 21:50 Missed attempt(s): 24 gauge in left antecubital area. Bleeding controlled, band aid ea applied, catheter tip intact. 21:55 Missed attempt(s): 24 gauge in right hand. Bleeding controlled, band aid applied, ea catheter tip intact. 22:25 Lab(s) recollected, by me, sent to lab. Inserted 18 gauge 10 cm midline to right fc basilic vein on first attempt. Line with good blood return and flushes well. 02/13 00:13 Obinna Callaway MD is Hospitalizing Provider. cp 01:33 No provider procedures requiring assistance completed. Patient admitted, IV remains in ea place. Administered Medications: 02/12 22:30 Drug: NS 0.9% 250 ml Route: IV; Rate: bolus; Site: right upper arm; ea 02/13 01:49 Follow up: Response: No adverse reaction; IV Status: Completed infusion; IV Intake: ea 250ml 02/12 22:30 Drug: NS 0.9% 1000 ml Route: IV; Rate: 75 ml/hr; Site: right upper arm; ea 02/13 01:49 Follow up: Response: No adverse reaction; IV Status: Infusion continued upon admission ea 01:50 Drug: Magnesium Sulfate 1 grams Route: IVPB; Infused Over: 1 hrs; Site: right upper arm;ea 02:00 Follow up: Response: No adverse reaction; IV Status: Infusion continued upon admission ea Intake: 01:49 IV: 250ml; Total: 250ml. ea 01:58 PO: 0ml; Total: 250ml. ea Outcome: 00:14 Decision to Hospitalize by Provider. cp 00:17 Pt being admittedPatient's length of stay extended due to ea 00:30 Condition: stable ea 00:30 Instructed on the need for admit. 01:58 Admitted to Med/surg accompanied by tech, room 219, with chart, Report called to Yoan concepcion RN 02:05 Patient left the ED. ea Signatures: Dispatcher [employer] EDMS Marti Stokes 1 Juli Allen, RN RN Mars Feilds PA PA cp Moreno, Amanda am2 Thompson, Moriah mt Antunez, Elena RN RN Virginia Skinner
--- NOTE | 2018-02-13 00:15 | EDPHYS ---
Physician Documentation [facility] Name: Kady Gomez Age: 72 yrs Sex: Female : 1945 Arrival Date: 02/12/2018 Time: 19:27 Bed 20 Private MD: ED Physician Giovanni Charles HPI: 02/12 20:00 This 72 yrs old Female presents to ER via EMS with complaints of Fall Injury. cp 20:00 Details of fall: The patient fell from an upright position, while standing, and struck cp a tile surface. Onset: The symptoms/episode began/occurred this morning, at 10:00. Associated injuries: The patient sustained right leg and right knee, decreased range of motion. Severity of symptoms: in the emergency department the symptoms are unchanged, despite home interventions. 20:00 Patient reports she was using walker when legs became weak causing her to slide down cp wall of bathroom unto floor. Patient reports she remained on floor until returned from work this evening at 1800. Historical: - Allergies: 19:49 butorphanol tartrate; ea 19:49 Levofloxacin; ea 19:49 Cephalexin; ea 19:49 Tramadol HCl; ea - Home Meds: 19:49 citalopram oral [Active]; Enalapril Oral [Active]; ea - PMHx: 19:49 Anemia; Cirrhosis; Hypertension; ea - PSHx: 19:49 Hip Replacement; ea - Immunization history:: Adult Immunizations up to date. - Social history:: Smoking status: Patient/guardian denies using tobacco. - Immunization history: Last tetanus immunization: unknown. - Ebola Screening: : No symptoms or risks identified at this time. ROS: 20:05 Constitutional: Negative for body aches, chills, fever, poor PO intake. cp 20:05 Eyes: Negative for injury, pain, redness, and discharge. cp 20:05 ENT: Negative for drainage from ear(s), ear pain, sore throat, difficulty swallowing, difficulty handling secretions. 20:05 Cardiovascular: Negative for chest pain, edema, palpitations. 20:05 Respiratory: Negative for cough, shortness of breath, wheezing. 20:05 Abdomen/GI: Negative for abdominal pain, nausea, vomiting, and diarrhea, constipation, black/tarry stool, rectal bleeding. 20:05 Back: Negative for pain at rest, pain with movement. 20:05 MS/extremity: Positive for decreased range of motion, pain, of the right leg, Negative for deformity, paresthesias. 20:05 Skin: Negative for cellulitis, rash. 20:05 Neuro: Positive for general weakness, Negative for altered mental status, dizziness, headache, loss of consciousness, syncope, near syncope. 20:05 All other systems are negative. Exam: 20:08 Constitutional: The patient appears in no acute distress, alert, awake, cp non-diaphoretic, non-toxic, well developed, frail. 20:08 Head/Face: Normocephalic, atraumatic. cp 20:08 Eyes: Periorbital structures: appear normal, Pupils: equal, round, and reactive to light and accomodation, Extraocular movements: intact throughout, Conjunctiva: normal, no exudate, no injection, Sclera: no appreciated abnormality, Lids and lashes: appear normal, bilaterally. 20:08 ENT: External ear(s): are unremarkable, Ear canal(s): are normal, clear, TM's: bulging, is not appreciated, bilaterally, dullness, bilaterally, erythema, is not appreciated, bilaterally, Nose: is normal, Mouth: Lips: dry, Oral mucosa: moist, Posterior pharynx: is normal, airway is patent, no erythema, no exudate, Voice: is normal. 20:08 Neck: C-spine: vertebral tenderness, is not appreciated, crepitus, is not appreciated, ROM/movement: is normal, is supple, without pain, no range of motions limitations, no nuchal rigidity. 20:08 Chest/axilla: Inspection: normal, Palpation: is normal, no crepitus, no tenderness. 20:08 Cardiovascular: Rate: normal, Rhythm: regular, Pulses: Pulses are 2+ in right radial artery, right dorsalis pedis artery, left radial artery and left dorsalis pedis artery. Edema: is not appreciated, JVD: is not appreciated. 20:08 Respiratory: the patient does not display signs of respiratory distress, Respirations: normal, no use of accessory muscles, no retractions, no splinting, no tachypnea, labored breathing, is not present, Breath sounds: are clear throughout, no decreased breath sounds, no stridor, no wheezing. 20:08 Abdomen/GI: Inspection: abdomen appears normal, Palpation: abdomen is soft and non-tender, in all quadrants. 20:08 Back: pain, is absent, ROM is normal, vertebral tenderness, is not appreciated. 20:08 Musculoskeletal/extremity: Extremities: grossly normal except: noted in the right knee: decreased ROM, tenderness, There is no evidence of deformity. 20:08 Skin: cellulitis, is not appreciated, no rash present. 20:08 Neuro: Orientation: to person, place \T\ time. Mentation: is normal, Motor: moves all fours, general weakness w/o focal deficits, Sensation: no obvious gross deficits, Gait: not tested. 20:20 ECG was reviewed by the Attending Physician. cp Vital Signs: 19:26 BP 144 / 78; Pulse 63; Resp 18; Temp 98; Pulse Ox 100% ; Weight 65.32 kg; Height 5 ft. ea 8 in. (172.72 cm); Pain 8/10; 20:10 BP 98 / 64; Pulse 62; Resp 16; Pulse Ox 99% on R/A; mt 21:51 BP 136 / 52; Pulse 61; Resp 17; Pulse Ox 99% on R/A; mt 23:13 BP 117 / 43; Pulse 58; Resp 16; Pulse Ox 98% on R/A; mt 23:36 BP 134 / 62 Supine; Pulse 69; mt 23:36 BP 136 / 98 Sitting; Pulse 66; mt 23:36 BP 116 / 91 Standing; Pulse 82; mt 02/13 00:16 BP 128 / 54; Pulse 60; Resp 18; Pulse Ox 97% on R/A; ea 01:55 BP 134 / 62; Pulse 60; Resp 18; Temp 97.6; Pulse Ox 98% ; ea 02/12 19:26 Body Mass Index 21.89 (65.32 kg, 172.72 cm) ea [place] Coma Score: 02/12 19:26 Eye Response: spontaneous(4). Verbal Response: oriented(5). Motor Response: obeys ea commands(6). Total: 15. Trauma Score (Adult): 19:26 Eye Response: spontaneous(1); Verbal Response: oriented(1); Motor Response: obeys ea commands(2); Systolic BP: > 89 mm Hg(4); Respiratory Rate: 10 to 29 per min(4); [place] Score: 15; Trauma Score: 12 MDM: 19:29 Patient medically screened. 23:30 Data reviewed: vital signs, nurses notes, lab test result(s), EKG, radiologic studies, cp plain films. 23:30 Test interpretation: by ED physician or midlevel provider: plain radiologic studies. cp Counseling: I had a detailed discussion with the patient and/or guardian regarding: the historical points, exam findings, and any diagnostic results supporting the discharge/admit diagnosis, lab results, radiology results. Response to treatment: the patient's symptoms have mildly improved after treatment. 23:50 Physician consultation: Obinna Callaway MD was called at 23:50, was contacted at 23:50, cp regarding admission, to the medical/surgical unit. patient's condition. 02/12 19:53 Order name: Basic Metabolic Panel; Complete Time: 23: 02/12 23:26 Interpretation: Normal except: CL 111; GFR 62; CA 7.7. 02/12 19:53 Order name: CBC with Diff; Complete Time: 01:33 02/12 23:26 Interpretation: Normal except: WBC 2.4; RBC 3.24; HGB 8.4; HCT 26.2; MCH 26.0; PLT 135; cp RDW 24.2; NEUT A 1.6; LYMA 0.5. 02/12 19:53 Order name: LFT's; Complete Time: 23: 02/12 23:26 Interpretation: Normal except: AST 40; BILID 0.5; TP 6.1; ALB 2.4; GLOB 3.7; A/G 0.6. 02/12 19:53 Order name: Magnesium; Complete Time: 23: 02/13 00:07 Interpretation: Abnormal: MG 1.7. 02/12 19:53 Order name: NT PRO-BNP; Complete Time: 23:26 02/12 19:53 Order name: PT-INR; Complete Time: 23: 02/13 01:34 Interpretation: Abnormal: PT 16.7. 02/12 19:51 Order name: XRAY Pelvis; Complete Time: 21:37 02/12 21:37 Interpretation: Report reviewed. 02/12 19:51 Order name: XRAY Femur RIGHT; Complete Time: 21:37 02/12 21:37 Interpretation: Report reviewed. 02/12 19:51 Order name: XRAY Tib Fib RIGHT; Complete Time: 21:37 cp 02/12 21:38 Interpretation: Report reviewed. 02/12 19:53 Order name: Troponin (emerg Dept Use Only); Complete Time: 23:26 cp 02/12 19:53 Order name: XRAY Chest (1 view); Complete Time: 21:37 cp 02/12 21:38 Interpretation: Report review. 02/13 01:10 Order name: CBC Smear Scan; Complete Time: 01:33 EDMS 02/12 19:53 Order name: EKG; Complete Time: 19:54 cp 02/12 19:53 Order name: Cardiac monitoring; Complete Time: 20:47 02/12 19:53 Order name: EKG - Nurse/Tech; Complete Time: 20:14 02/12 19:53 Order name: IV Saline Lock; Complete Time: 23:53 02/12 19:53 Order name: Labs collected and sent; Complete Time: 23:53 02/12 19:53 Order name: O2 Per Protocol; Complete Time: 20:46 cp 02/12 19:53 Order name: O2 Sat Monitoring; Complete Time: 20:46 cp 02/12 21:38 Order name: Orthostatics; Complete Time: 23:36 cp 02/12 23:27 Order name: Misc. Order: ambulate patient; Complete Time: 23:36 cp 02/13 00:32 Order name: Physical Therapy Consult EDMS 02/13 00:32 Order name: Regular EDMS EC:20 Rate is 62 beats/min. Rhythm is regular. OK interval is normal. QRS interval is normal. cp QT interval is normal. No ST changes noted. Interpreted by me. Reviewed by me. Administered Medications: 22:30 Drug: NS 0.9% 250 ml Route: IV; Rate: bolus; Site: right upper arm; ea 02/13 01:49 Follow up: Response: No adverse reaction; IV Status: Completed infusion; IV Intake: ea 250ml 02/12 22:30 Drug: NS 0.9% 1000 ml Route: IV; Rate: 75 ml/hr; Site: right upper arm; ea 02/13 01:49 Follow up: Response: No adverse reaction; IV Status: Infusion continued upon admission ea 01:50 Drug: Magnesium Sulfate 1 grams Route: IVPB; Infused Over: 1 hrs; Site: right upper arm;ea 02:00 Follow up: Response: No adverse reaction; IV Status: Infusion continued upon admission ea Disposition: 04:10 Co-signature as Attending Physician, Giovanni Charles MD I agree with the assessment and [facility] plan of care. Disposition: 02/13/18 00:14 Hospitalization ordered by Obinna Callaway for Observation. Preliminary diagnosis are Fall on same level from slipping, tripping and stumbling, Weakness - General. - Bed requested for Telemetry/MedSurg (observation). - Status is Observation. ea - Condition is Stable. - Problem is new. - Symptoms have improved. UTI on Admission? No Signatures: Dispatcher [employer] EDMS Giovanni Charles MD MD kdr Juli Allen RN RN fc Mars Macario PA PA cp Antunez, Elena, RN RN jamey Corrections: (The following items were deleted from the chart) 02/12 23:26 23:26 Normal except: CL 111; GFR 62. cp cp 02/13 00:20 00:14 Hospitalization Ordered by Obinna Callaway MD for Observation. Preliminary diagnosis cp is Fall on same level from slipping, tripping and stumbling. Bed requested for Telemetry/MedSurg (observation). Status is Observation. Condition is Stable. Problem is new. Symptoms have improved. UTI on Admission? No. cp 00:49 00:20 02/13/2018 00:14 Hospitalization Ordered by Obinna Callaway MD for Observation. fc Preliminary diagnosis is Fall on same level from slipping, tripping and stumbling; Weakness - General. Bed requested for Telemetry/MedSurg (observation). Status is Observation. Condition is Stable. Problem is new. Symptoms have improved. UTI on Admission? No. cp 02:05 00:49 02/13/2018 00:14 Hospitalization Ordered by Obinna Callaway MD for Observation. ea Preliminary diagnosis is Fall on same level from slipping, tripping and stumbling; Weakness - General. Bed requested for Telemetry/MedSurg (observation). Status is Observation. Condition is Stable. Problem is new. Symptoms have improved. UTI on Admission? No. fc
[2018-02-13] MEDS ORDERED: ACETAMINOPHEN 500 MG TAB PO PRN (00:29)
[2018-02-13 01:10] LABS: Anisocytosis 2+; Blood Morphology Comment NOTED (NOT SEEN); Hypochromasia 1+; Platelet Estimate DECR; Urine White Blood Cell Casts OK
[2018-02-13] MEDS ORDERED: MAGNESIUM SULFATE 1 gm IVPB 1 GM/100 ML BAG IV ONE (01:58)
[2018-02-13 02:45] VITALS: BMI 21.9
[2018-02-13] MEDS ORDERED: INFLUENZA VACCINE (for 3y+) 0.5 ML DOSE IMVAC ONE (08:00)
[2018-02-13] MEDS: SMZ./TMP. 800/160 MG TABLET PO SCH ×2 (09:00→20:59)
[2018-02-13] MEDS: RANITIDINE 150 MG TABLET PO SCH (09:59)
--- NOTE | 2018-02-13 12:26 | EKG ---
Test Date: 2018-02-12 Test Time: 20:13:08 [place] Man: BRETT MEASUREMENT RESULTS: Intervals: Rate: 62 KS: 154 QRSD: 90 QT: 482 QTc: 489 [place]: P: 77 KS: 154 QRS: 33 T: 35 INTERPRETIVE STATEMENTS: Normal sinus rhythm Normal ECG Compared to ECG 01/31/2018 01:29:52 First degree AV block no longer present T-wave abnormality no longer present Prolonged QT interval no longer present Electronically Signed On 02-13-18 12:25:40 CDT by Jonathan Qureshi
[2018-02-13] MEDS: PROPRANOLOL HCL 10 MG TAB PO SCH (20:59)
--- NOTE | 2018-02-13 23:14 | HP ---
Date of Admission: 02/13/2018 Chief Complaint: Fall, inability to get up. History Of Present Illness: A 72-year-old female patient, who was going to the bathroom and after she went to the bathroom as she was coming back to her bedroom, right between the bathroom and the bedroom near the door, she felt weak and she felt like her legs were not strong enough to hold her weight and she leaned against the wall and went down on the floor. She did not have a free fall, but she went down on the floor slowly. This happened around 10 o' clock yesterday morning. The patient did not have her phone with her, and she did not have any other ways to contact her family, which is her who was at work and he came home around 6:30 p.m. or so and found the patient sitting on the floor, so she was on the floor for almost 8 hours to 8-1/2 hours. He brought her to emergency room. After she was evaluated, the patient and patient 's did not feel comfortable going back home because of her significant generalized weakness and risk of fall and injury, so she was admitted to the hospital for observation. She has some pain in her right knee, anterior, and lateral aspect of the right knee. There is no swelling. No bruising. She denies any fever, chills, nausea, vomiting. No chest pain. No shortness of breath. No vomiting. No diarrhea. Medications: Bactrim DS 1 tablet p.o. twice a day, Belsomra 10 mg at bedtime, citalopram 20 mg p.o. daily, Hemocyte-Plus 1 tablet p.o. daily, propranolol 10 mg 2 times a day, hold if systolic blood pressure less than 120, pantoprazole 40 mg daily, Zofran p.r.n. Review of Systems: Constitutional: As mentioned above all other systems reviewed and negative. Allergies: TO CEPHALEXIN, DEMEROL, TRAMADOL, AND SHE IS ALSO LISTED ALLERGIC TO LEVAQUIN. Past Medical History: Significant for pancytopenia, gastroesophageal reflux disease, biliary cirrhosis, hypertension, osteoarthritis at multiple sites, depression, allergic rhinitis, insomnia, iron deficiency anemia. For cirrhosis of liver, the patient was seeing Dr. Angela, manufacturing controller in [place] in the past , but she decided not to follow up with him anymore, and Dr. Angela had requested her to get evaluation for liver transplant and she refused that as well. 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 Family History: Significant for glioblastoma, lung cancer, hypertension. Social History: Negative for smoking, alcohol use. She is a retired nurse. Lives at home with her . Physical Examination: Vital Signs: Last temperature 97.3, pulse 69, respiratory rate 18, blood pressure 140/63, oxygen saturation 98%, height 5 feet 8 inches, weight 144 pounds. General: Awake, alert, oriented, not in distress. HEENT: Head atraumatic, normocephalic. Conjunctivae nonerythematous. Sclerae white. Mouth, no thrush or edema noted. Ears/Nose, no mass, lesion, discharge noted. Neck: Supple. No JVD, lymph nodes, bruit, thyromegaly noted. Lungs: Bilateral good equal air entry. Clear to auscultation. No rhonchi. No rales. Heart: Normal heart sounds, no murmur or gallop. Abdomen: Soft, bowel sounds normal. No guarding, rigidity, tenderness, mass, hepatosplenomegaly, distention, or bruit noted. Extremities: No leg edema. No calf tenderness. Skin: No rash, ulcer, cellulitis. Lymphatics: No lymph node enlargement in neck, supraclavicular, infraclavicular region. Neuro: No focal neurological deficit. Chest: Unremarkable. External Genitalia: Deferred. Rectal: Deferred. Laboratory Data: White count 2.4, hemoglobin 8.4. Sodium 141, potassium 4.5, chloride 111, bicarb 25, BUN 11, creatinine 0.90, glucose 92, magnesium 1.7, SGOT 40, SGPT 19, alkaline phosphatase 74. Serum albumin 2.4. Chest x-ray; no acute cardiopulmonary changes. X-ray of the tibia-fibula, femur, and pelvis, no acute fracture noted. Impression: 1. Debility. 2. Generalized weakness. 3. Urinary tract infection. 4. Pancytopenia. 5. Biliary cirrhosis. 6. Hypertension. 7. Gastroesophageal reflux disease. 8. Osteoarthritis, multiple sites. 9. Depression. 10. Insomnia. 11. Iron deficiency anemia. Plan: We will go ahead and admit her to hospital for further evaluation and management of this problem. The patient is appropriate for observation and when yesterday emergency room provider contacted me requesting admission to the hospital, I did inform him to communicate with the patient and her that she will be admitted to the hospital as observation as I do not believe that she would qualify for inpatient hospital stay. Today, I also had a discussion with the patient and her regarding same, and informed them of this observation status for this hospital stay. The patient needs physical therapy, occupational therapy, and we did discuss about this options and we discussed about either going home with some 24-hour assistance at home to start with, until she gets to alf or stay in the hospital under observation until she is able to go to alf for physical therapy. The patient is not able to safely stay at home by herself, which we already know now. She has Home Health services that recently got started this week for home physical therapy, but at this point her works, and she lives at home during the time when her is at work by herself. So, we did discuss all these options today. She can possibly go home today provided she has 24 hour help available at home. So, this weekend will be available, but as of Thursday , he will be going to work, so we did talk about possibility of getting caregiver services with one of the local agencies during day time while is at work, and will be available at nighttime to help her, and we can work on alf placement on outpatient basis. Other option is obviously to stay in the hospital under observation status until Thursday when Social Service can initiate referral process to the insurance company for alf placement for her physical therapy and occupational therapy. The patient and her they both elected to stay here in the hospital under observation status, and I will see her tomorrow for followup. Home medications will be continued per order. We will consult Physical Therapy, Occupational Therapy, and Social Service. DMITRI/MODL Voice ID: [id number] GURINDER
[2018-02-14 06:28] LABS: Absolute Lymphocytes (CBC) 0.5 K/uL (0.7-4.9); Absolute Monocytes 0.1 K/uL (0.1-1.3); Absolute Neutrophil 1.1 K/uL (1.8-8.0); Eosinophils % 3.8 % (0-4.4); Hematocrit 24.4 % (36.0-45.0); Lymphocytes % 25.5 % (15.3-44.8); MCV 80.9 fL (80-100); MPV 8.8 fL (7.6-11.3); Monocytes % 7.9 % (3.3-12.3); RBC Red Blood Cell Count 3.01 M/uL (3.86-4.86)
[2018-02-14 07:04] LABS: Potassium 4.6 mmol/L (3.5-5.1)
[2018-02-14 07:49] LABS: Anisocytosis 3+; Blood Morphology Comment NOTED (NOT SEEN); Platelet Estimate ADEQ; Urine White Blood Cell Casts OK
[2018-02-14 07:50] LABS: Elliptocytes 1+; Macrocytosis 2+; Poikilocytosis 2+; Spherocyte 1+
[2018-02-14] MEDS: SMZ./TMP. 800/160 MG TABLET PO SCH (09:00)
[2018-02-14] MEDS ORDERED: PANTOPRAZOLE 40MG TABLET PO ONE (09:00)
[2018-02-14] MEDS ORDERED: CITALOPRAM 10 MG TABLET PO SCH (09:00)
[2018-02-14] MEDS: PROPRANOLOL HCL 10 MG TAB PO SCH ×2 (09:40→21:13)
[2018-02-14] MEDS: FE SULF/FA/VIT B COMP & C TAB PO SCH (09:41)
[2018-02-14] MEDS: RANITIDINE 150 MG TABLET PO SCH (10:30)
[2018-02-14] MEDS ORDERED: MAGNESIUM SULFATE 1 gm IVPB 1 GM/100 ML BAG IV ONE (11:03)
[2018-02-14] MEDS ORDERED: NA CHLORIDE 0.9% 250 ML ONE (11:50)
[2018-02-14] MEDS ORDERED: ONDANSETRON 4 MG/2 ML VIAL IV PRN (15:17)
--- NOTE | 2018-02-14 16:04 | PN ---
Date of Progress Note: 02/14/2018 Subjective: The patient was seen this morning for followup. No new complaints or problems reported. She did report ambulating with physical therapy yesterday and denies any new complaints today. No nausea, no vomiting. Objective: Vital Signs: Reviewed except she has low-grade fever, 99.5-99.6 range. HEENT: Unremarkable. Lungs: Clear to auscultation. Heart: Sounds normal. Abdomen: Soft. Bowel sounds normal. No guarding, rigidity, tenderness, or distention. Extremities: No leg edema. Laboratory Data: Sodium 142, potassium 4.6, chloride 112, bicarb 26, BUN 11, creatinine 1, glucose 8 7. White count 1.8, hemoglobin 7.8, platelets 136. Impression: 1.Debility. 2.Generalized weakness. 3.Pancytopenia. 4.Urinary tract infection. 5.Biliary cirrhosis. Plan: We will go ahead and continue current medications. Physical therapy to continue to help ambul ate the patient. Social Service to make arrangements for patient to be admitted to assisted acility per choice and she is currently on antibiotic, Bactrim. We will continue that. She will be finishing her antibiotics tomorrow, but considering low-grade fever that she has, we will repeat urinalysis and urine culture which were ordered today. Details were discussed with the patient. DMITRI/SUSAN Voice ID: [id number] Report ID: [id number]
[2018-02-14 18:28] LABS: Urine Appearance CLEAR; Urine Bilirubin NEGATIVE (NEG); Urine Blood NEGATIVE (NEG); Urine Color DK YELLOW; Urine Glucose NEGATIVE (NEG); Urine Protein NEGATIVE (NEG)
[2018-02-14 18:42] LABS: Urine Bacteria <20 /HPF (<20); Urine Culture Reflex Order NOT NEEDED; Urine RBC <5 /HPF (NONE SEEN)
[2018-02-14] MEDS: TRIMETHOPRIM PO SCH (21:13)
[2018-02-14] MEDS: SULFAMETHOXAZOLE PO SCH (21:13)
[2018-02-14] MEDS: CITALOPRAM 10 MG TABLET PO SCH (21:13)
[2018-02-15] MEDS: PANTOPRAZOLE 40MG TABLET PO SCH (05:43)
[2018-02-15 05:58] LABS: Absolute Lymphocytes (CBC) 0.4 K/uL (0.7-4.9); Absolute Monocytes 0.2 K/uL (0.1-1.3); Absolute Neutrophil 0.8 K/uL (1.8-8.0); Basophils % 0.9 % (0-1.3); Eosinophils % 4.4 % (0-4.4); Hematocrit 24.1 % (36.0-45.0); MCH 25.6 pg (27.0-35.0); MCV 80.7 fL (80-100); MPV 8.2 fL (7.6-11.3); Monocytes % 10.1 % (3.3-12.3); RBC Red Blood Cell Count 2.99 M/uL (3.86-4.86)
[2018-02-15 06:02] LABS: Magnesium 1.8 mg/dL (1.8-2.4); Potassium 4.4 mmol/L (3.5-5.1)
[2018-02-15] MEDS: TRIMETHOPRIM PO SCH ×2 (08:32→21:12)
[2018-02-15] MEDS: PROPRANOLOL HCL 10 MG TAB PO SCH ×2 (08:32→21:11)
[2018-02-15] MEDS: SULFAMETHOXAZOLE PO SCH ×2 (08:32→21:12)
[2018-02-15] MEDS: FE SULF/FA/VIT B COMP & C TAB PO SCH (08:32)
[2018-02-15] MEDS: RANITIDINE 150 MG TABLET PO SCH (08:35)
[2018-02-15] MEDS ORDERED: MAGNESIUM SULFATE 1 gm IVPB 1 GM/100 ML BAG IV ONE (10:54)
[2018-02-15] MEDS: NYSTATIN 100MU/GM CREAM 15GM TOP SCH ×2 (13:06→21:12)
[2018-02-15] MEDS: CITALOPRAM 10 MG TABLET PO SCH (21:11)
--- NOTE | 2018-02-16 01:08 | PN ---
Date of Progress Note: 02/15/2018 Subjective: The patient was seen this morning for followup. No new complaints or problems reported by her. She had some nausea yesterday, which has resolved with medication. No abdominal pain. No v omiting. No diarrhea. Objective: Vital Signs: Reviewed. HEENT: Unremarkable. Lungs: Clear to auscultation. Heart: Heart sounds normal. Abdomen: Soft. Bowel sounds normal. No guarding, rigidity, tenderness, or distention. Extremities: No leg edema. Laboratory Data: White count 1.5, hemoglobin 7.7, platelets 130. Sodium 143, potassium 4.4, chlorid e 112, bicarb 25, BUN 11, creatinine 0.90, glucose 82. Impression: 1.Generalized weakness. 2.Debility. 3.Pancytopenia. 4.Biliary cirrhosis. 5.Urinary tract infection. Plan: Urinalysis is normal. The patient is finishing her antibiotic, which is Bactrim. We will con tinue that. Physical therapy to continue to help ambulate the patient. Continue other current medic al management and we are waiting for Social Service to assist the patient with fpc placement for skilled therapy for her debility and generalized weakness. I will se e her tomorrow for followup. DMITRI/MODL Voice ID: [id number] Report ID: [id number]
[2018-02-16 05:00] LABS: Potassium 4.9 mmol/L (3.5-5.1)
[2018-02-16] MEDS: PANTOPRAZOLE 40MG TABLET PO SCH (05:46)
[2018-02-16] MEDS: SULFAMETHOXAZOLE PO SCH (08:00)
[2018-02-16] MEDS: TRIMETHOPRIM PO SCH (08:00)
[2018-02-16] MEDS: NYSTATIN 100MU/GM CREAM 15GM TOP SCH (08:01)
[2018-02-16] MEDS: FE SULF/FA/VIT B COMP & C TAB PO SCH (08:01)
[2018-02-16] MEDS: RANITIDINE 150 MG TABLET PO SCH (08:01)
[2018-02-16] MEDS: PROPRANOLOL HCL 10 MG TAB PO SCH (08:01)
--- NOTE | 2018-02-16 12:30 | PN ---
Date of Progress Note: 02/16/2018 Subjective: The patient was seen this morning for followup. No new complaints or problems reported by the patient. She was lying in bed, not in distress. Denies any abdominal pain, nausea, or vomiti ng. She reported that her appetite is good. She is eating well and feels stronger than how she did last week. She ambulated with Physical Therapy yesterday she reported. Objective: Vital Signs: Reviewed. Remains afebrile. HEENT: Unremarkable. Lungs: Clear to auscultation. Heart: Sounds normal. Abdomen: Soft. Bowel sounds normal. No guarding, rigidity, tenderness, or distention. Extremities: No leg edema. Laboratory Data: Sodium 140, potassium 4.9, chloride 111, bicarb 24, BUN 12, creatinine 0.90, glucos e 80, magnesium 2. Impression: 1.Debility. 2.Generalized weakness. 3.Urinary tract infection. 4.Biliary cirrhosis. 5.Pancytopenia secondary to above. Plan: The patient's condition is stable. She is medically stable for discharge to go to [facility] as soon as Social Service is able to make arrangements and we are waiting for that to be comple leo. DMITRI/MODL Voice ID: [id number] Report ID: [id number]
[2018-02-16 14:54] VITALS: O2SAT 96
[2018-02-16 17:12] VITALS: BP 121/50; TEMP 97.3
--- NOTE | 2018-02-17 03:25 | DS ---
Date of Discharge: 02/16/2018 Disposition: Discharged to go home. Physical Examination: HEENT: Unremarkable. Lungs: Clear to auscultation. Heart: Sounds normal. Abdomen: Soft. Bowel sounds normal. No guarding, rigidity, tenderness, distention. Extremities: No leg edema. Discharge Medications And Instructions: 1.Continue all prior home medication. 2.Home health services to be resume with home physical therapy. 3.Follow up at my office per her scheduled appointment. Hospital Course: A 72-year-old female patient who was admitted to the hospital after she fell down a t home and was not able to get up. Please see dictated H and P for more information. The patient wa s admitted to the hospital after her workup done in the emergency room, as the patient and her husban d did not feel comfortable going back home. Her works, so during daytime, she is home by her self. When I saw her, I did talk to her and her about different options, one option being go ing back home with home health and home physical therapy, which was just started recently prior to [facility] admission for her and also suggested that she should have 24-hour care at home. Her is av ailable to help her at nighttime, but during daytime, she is by herself, so she was advised to make a rrangements with her caregiver services who can help her during daytime, but the patient and her husb and, they did not feel comfortable doing so and they wanted to go to [facility] for skilled rehab. The patient was made aware of the fact that she is in the hospital here under observation status and the patient and her they both understood, but they wanted to try to go to long-term [facility] for physical therapy. So, patient was kept in the hospital and because of the weekend, director of social services was not able to do anything to make any arrangements until yesterday and they started working as of yesterday with her insurance company today. I see note from social service that the patient d oes not want to go to [place] for long-term facility and she does not have any out of network benefit, so she decided to not go back home with home health and home physical therapy. Meanwhile, brandee ferguson in the hospital, we did provide her physical therapy. She started ambulating well with the phys ical therapy, and when I saw her this morning, she informed me that she feels a lot better and strong er compared to how she was when she came into the hospital. This is how she was last time also. Her condition had improved as far as generalized weakness is concerned, but after she went home, she sta rted deteriorating and getting weaker and weaker. We hope that she continues to do therapy at home a nd continues to maintain her strength that she has gained here in the hospital. Her repeat urine ambreen t was normal done in the hospital. Medically, she is stable for discharge. Final Diagnoses: 1.Debility. 2.Generalized weakness. 3.Urinary tract infection. 4.Pancytopenia. 5.Biliary cirrhosis. 6.Hypertension. 7.Gastroesophageal reflux disease. 8.Osteoarthritis, multiple sites. 9.Depression. 10.Insomnia. 11.Iron deficiency anemia. DMITRI/MODL Voice ID: [id number] Report ID: [id number]
== END 2018-02-16 19:08 | disposition home health service (06) ==
LOC: ER 19:26 → ERHOLD 02-13 00:27 → 2ND 02-13 01:34
PROVIDERS: ADMIT Internal Medicine; ATTEND Internal Medicine
DX: R53.1 Weakness (principal); N39.0 Urinary tract infection, site not specified; D61.818 Other pancytopenia; K74.5 Biliary cirrhosis, unspecified; I10 Essential (primary) hypertension; K21.9 Gastro-esophageal reflux disease without esophagitis; M19.90 Unspecified osteoarthritis, unspecified site; F32.9 Major depressive disorder, single episode, unspecified; G47.00 Insomnia, unspecified; D50.9 Iron deficiency anemia, unspecified
CPT/HCPCS: 36415; 71045; 72170; 80048; 80076; 81001; 83735; 83880; 84484; 85025; 85610; 87086; 87088; 93005; 96365; 96366; 96375; 97163; 99285; G0378; J2405; J3475; J7030

== ENCOUNTER 2018-05-13 13:45 | Inpatient (IN) | payer MEDICARE ==
[2018-05-13 15:21] VITALS: BMI 23.1
--- NOTE | 2018-05-13 15:33 | RAD REPORT ---
EXAM DESCRIPTION: RAD - Chest Single View - 05/13/2018 3:24 pm CLINICAL HISTORY: pleural effusion Chest pain. COMPARISON: Chest Single View dated 02/12/2018; Chest Single View dated 01/31/2018; Chest Single Vie w dated 03/29/2016; Chest Single View dated 03/27/2016 FINDINGS: Portable technique limits examination quality. Small bilateral pleural effusions are seen. Airspace opacity in the left lung base laterally is noted suspicious for infiltrate/ pneumonia. The heart is mildly prominent. No displaced fractures.Cervical hardware plate is noted. IMPRESSION: Patchy opacity in the left lung base laterally likely represents pneumonia/infiltrate. Small bilateral pleural effusions.
[2018-05-13 15:47] LABS: Absolute Lymphocytes (CBC) 0.3 K/uL (0.7-4.9); Eosinophils % 3.1 % (0-4.4)
[2018-05-13 15:51] LABS: Absolute Monocytes 0.1 K/uL (0.1-1.3); Absolute Neutrophil 1.3 K/uL (1.8-8.0); Basophils % 1.2 % (0-1.3); Lymphocytes % 14.6 % (15.3-44.8); MPV 8.7 fL (7.6-11.3); RBC Red Blood Cell Count 3.48 M/uL (3.86-4.86)
[2018-05-13 16:24] LABS: Anisocytosis 2+; Blood Morphology Comment NOTED (NOT SEEN); Elliptocytes 1+; Hypochromasia 1+; Platelet Estimate DECR; Teardrop Cell FEW
[2018-05-13 16:45] LABS: Albumin 2.1 g/dL (3.4-5.0); Bilirubin Total 1.3 mg/dL (0.2-1.0); Potassium 3.7 mmol/L (3.5-5.1); Protein, Total 6.6 g/dL (6.4-8.2); Thyroid Stimulating Hormone 2.23 uIU/mL (0.360-3.740)
[2018-05-13] MEDS ORDERED: INFLUENZA VACCINE (for 3y+) 0.5 ML DOSE IMVAC ONE (18:00)
[2018-05-13] MEDS: FUROSEMIDE 20 MG/ 2ML VIAL IV SCH (18:09)
--- NOTE | 2018-05-13 18:09 | RAD REPORT ---
EXAM DESCRIPTION: US - Extrem Venous W Compress Joe - 05/13/2018 5:43 pm CLINICAL HISTORY: leg edema Bilateral leg edema and swelling. COMPARISON: CT HEAD CSPINE MPR WO CONTRAST dated 07/12/2015EXT VENOUS W COMPRESSION JOE dated 012 TECHNIQUE: Real-time sonographic interrogation of the left and right lower extremity deep venous sys tems was performed. FINDINGS: Normal compressibility, flow augmentation, phasic flow and spontaneous flow is identified in both the left and right lower extremity deep venous systems. IMPRESSION: No sonographic evidence of left or right lower extremity deep venous thrombosis.
--- NOTE | 2018-05-13 18:32 | RAD REPORT ---
EXAM DESCRIPTION: US - Abdomen Exam Complete - 05/13/2018 5:43 pm CLINICAL HISTORY: Abdominal pain. cirrhosis COMPARISON: ABDOMINAL EXAM COMPLETE dated 04/01/2012 FINDINGS: The liver is shrunken and nodular with heterogenous echotexture seen. No focal liver lesio ns or intrahepatic biliary dilatation is seen. A TIPS shunt is noted. The gallbladder is surgically absent. Common bile duct is normal in caliber measuring 5 millimeters. Both kidneys are normal in size, shape and echotexture. No hydronephrosis, focal lesion of concern or perinephric fluid. The spleen is enlarged measuring 16 cm The pancreas and aorta are obscured by bowel gas. The visualized aspects of the IVC are grossly normal. Mild ascites. IMPRESSION: Shrunken, nodular and heterogenous liver is present compatible with significant cirrhosi s. A TIPS shunt is in place and appears patent. If detailed assessment of the TIPS shunt is desired c linically, dedicated Doppler examination would be recommended of the liver. Mild ascites is present with significant splenomegaly.
[2018-05-13] MEDS: PIPER/TAZO/NS 3.375gm 3.375 GM/100 ML BAG IVPB SCH (21:45)
[2018-05-13] MEDS ORDERED: PIPER/TAZO/NS 3.375gm 3.375 GM/100 ML BAG ONE ×2 (21:50→22:24)
[2018-05-14] MEDS: PIPER/TAZO/NS 3.375gm 3.375 GM/100 ML BAG IVPB SCH ×3 (00:34→17:29)
[2018-05-14 05:23] LABS: Absolute Lymphocytes (CBC) 0.2 K/uL (0.7-4.9); Absolute Monocytes 0.1 K/uL (0.1-1.3); Absolute Neutrophil 1.2 K/uL (1.8-8.0); Basophils % 0.8 % (0-1.3); Eosinophils % 2.7 % (0-4.4); Hematocrit 25.6 % (36.0-45.0); Lymphocytes % 13.8 % (15.3-44.8); Monocytes % 7.7 % (3.3-12.3); RBC Red Blood Cell Count 3.51 M/uL (3.86-4.86)
[2018-05-14 05:31] LABS: Magnesium 1.7 mg/dL (1.8-2.4); Potassium 3.5 mmol/L (3.5-5.1)
[2018-05-14] MEDS ORDERED: POTASSIUM CL SA 10 MEQ TAB PO ONE (06:00)
[2018-05-14] MEDS ORDERED: MAGNESIUM SULFATE 1 gm IVPB 1 GM/100 ML BAG IV ONE (07:00)
[2018-05-14] MEDS: RANITIDINE 150 MG TABLET PO SCH (08:16)
[2018-05-14] MEDS: FUROSEMIDE 20 MG/ 2ML VIAL IV SCH ×2 (08:17→17:29)
[2018-05-14] MEDS: CITALOPRAM 10 MG TABLET PO SCH ×3 (08:17→22:24)
[2018-05-14] MEDS: SPIRONOLACTONE 25 MG TABLET PO SCH (08:19)
[2018-05-14] MEDS: PROPRANOLOL HCL 10 MG TAB PO SCH ×2 (08:20→22:24)
--- NOTE | 2018-05-14 08:21 | HP ---
Date of Admission: 05/13/2018 Chief Complaint: Shortness of breath. History Of Present Illness: This is a 72-year-old pleasant female patient who came into office with her today for her scheduled followup visit and informed me that she is having shortness of br eath. Upon further questioning, the patient reported that she is having the shortness of breath, whi ch is increasingly getting worse in last 2 weeks. She denies any blood in stool or blood in urine. No chest pain. No fever, chills. No expectoration. She is also having lot of swelling in her both legs and abdomen. She feels like her abdomen is getting distended. Denies any abdominal pain. She has had some falls at home, but no obvious injuries as she reports. After she was evaluated, maribell wheeler was made to admit her to the hospital for further evaluation and management of this problem. Allergies: TO CEPHALEXIN, DEMEROL, AND TRAMADOL. Medications: She takes 20 mg daily, pantoprazole 40 mg daily, propranolol 10 mg 2 times a day, and she was prescribed Hemocyte-Plus daily, but I believe she is not taking it. Review of Systems: Respiratory: As mentioned above. Cardiovascular: As mentioned above. All other systems reviewed and negative. Social History: Negative for smoking and alcohol use. Family History: Significant for lung cancer, hypertension, brain tumor. 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 Liver biopsy in 2003, cholecystectomy, hip replacement, and TIPS procedure. Past Medical History: Significant for insomnia, pancytopenia, gastroesophageal reflux disease, bilia ry cirrhosis, hypertension, osteoarthritis at multiple sites. Physical Examination: Vital Signs: When she came into office, we were not able to get her weight because she was not able to stand up due to weakness. Height 68 inches, blood pressure 111/69, pulse 67, respiratory rate 15, temperature 97.6. General: The patient appears weaker than normal, pale. HEENT: Head atraumatic, normocephalic. Conjunctivae nonerythematous. Sclerae white. Mouth, no thr ush or edema noted. Ears/Nose, no mass, lesion, discharge noted. Neck: Supple. No JVD, lymph nodes, bruit, thyromegaly noted. Lungs: Presence of rales in lower two-third of both lung torres. Heart: Normal heart sounds, no murmur or gallop. Abdomen: Abdomen appears distended and has edema of abdominal wall anteriorly and posteriorly and pr esence of ascites. No guarding. No rigidity. No tenderness. Bowel sounds normoactive. Extremities: Significant swelling, grade 3 edema of both lower extremity from groin all the way to h er toes. Skin: No rash, ulcer, cellulitis. Lymphatics: No lymph node enlargement in neck, supraclavicular, infraclavicular region. Neuro: Significant generalized weakness. No focal deficit. Chest: Unremarkable. External Genitalia: Deferred. Rectal: Deferred. Laboratory Data: White count 1.8, hemoglobin 7.2, platelets 90. Her hemoglobin last year in July a january was 8.7. Sodium 140, potassium 3.7, chloride 111, bicarb 26, BUN 15, creatinine 0.76, glu cose 84, total bilirubin 1.3, direct bili 38, SGOT 38, SGPT 15, ammonia level 46. Vitamin B12 1537. Folic acid level 18. TSH 2.23. Venous doppler of both lower extremity, negative for DVT. Chest x-ray, patchy opacity left lung base representing pneumonia, small bilateral pleural effusions. Abdominal ultrasound shows changes of si gnificant cirrhosis of liver, TIPS shunt is in place, mild ascites present with significant splenomeg gordon. Impression: 1.Pneumonia. 2.Anemia. 3.Biliary cirrhosis. 4.Insomnia. 5.Gastroesophageal reflux disease. 6.Hypertension. 7.Osteoarthritis, multiple sites. 8.Pancytopenia. Plan: We will go ahead and admit the patient to hospital for further evaluation and management of th is problem. The patient is appropriate for inpatient and [facility] We will initiate IV antibiotic therapy for pneumonia. Pleural effusion is mild, so there is no n eed for any kind of intervention for pleural effusion at this point. We will go ahead and continue h ome medications per order. We will repeat another blood work tomorrow and the patient will probably need blood transfusion during this hospitalization. I will communicate with her about importance of taking her iron supplement therapy. For her biliary cirrhosis, the patient has declined any further treatment including evaluation for liver transplant, which was suggested by her liver specialist in [facility], so with time downhill course and progression of this disease is to be expected. I did talk t o her about her advance directive in front of her , and she clearly stated that she does not w ant any heroic measures done in the event of cardiopulmonary arrest, no CPR defibrillation or ventila tor support, and DNR order will be written in the chart per my discussion with the patient as per her decision. Overall long-term prognosis is poor. DMITRI/MODL Voice ID: [id number]
--- NOTE | 2018-05-14 22:47 | PN ---
Date of Progress Note: 05/14/2018 Subjective: The patient was seen this morning for followup. She was feeling better and actually loo carol better compared to yesterday. Her shortness of breath got better overnight. Objective: Vital Signs: Reviewed. HEENT: Unremarkable. Lungs: Bilateral good equal air entry. Presence of rales noted in lower lung torres, but better tod ay than yesterday. Not in respiratory distress. Heart: Sounds normal. Abdomen: Soft. Bowel sounds normal. No guarding, rigidity, tenderness, or distention. Mild ascite s present. Extremities: Bilateral leg edema present, better today than yesterday. Laboratory Data: White count 1.6, hemoglobin 7.3, and platelets 98. Sodium 141, potassium 3.5, chlo ride 109, bicarb 27, BUN 15, creatinine 0.84, glucose 83, and magnesium 1.7. Urine culture results p ending. Impression: 1.Pneumonia. 2.Biliary cirrhosis. 3.Pancytopenia. 4.Hypertension. Plan: We will go ahead and continue current medication. Continue IV Lasix, oral spironolactone, and IV antibiotic, which is Zosyn. I will see her tomorrow for followup. Home medications will be cont inued per order and we will repeat blood work tomorrow morning. Continue SCD for DVT prophylaxis. DMITRI/MODL Voice ID: [id number] Report ID: [id number]
[2018-05-15] MEDS: PIPER/TAZO/NS 3.375gm 3.375 GM/100 ML BAG IVPB SCH ×3 (00:50→17:00)
[2018-05-15 05:11] LABS: Absolute Lymphocytes (CBC) 0.3 K/uL (0.7-4.9); Absolute Monocytes 0.2 K/uL (0.1-1.3); Absolute Neutrophil 1.3 K/uL (1.8-8.0); Basophils % 0.4 % (0-1.3); Eosinophils % 4.4 % (0-4.4); Hematocrit 25.4 % (36.0-45.0); Lymphocytes % 14.1 % (15.3-44.8); MPV 8.8 fL (7.6-11.3); Monocytes % 11.1 % (3.3-12.3); RBC Red Blood Cell Count 3.52 M/uL (3.86-4.86)
[2018-05-15 05:29] LABS: Magnesium 2.2 mg/dL (1.8-2.4); Potassium 3.9 mmol/L (3.5-5.1)
[2018-05-15] MEDS ORDERED: POTASSIUM 25 MEQ EFFERV TAB PO ONE (09:00)
[2018-05-15] MEDS: RANITIDINE 150 MG TABLET PO SCH (09:00)
[2018-05-15] MEDS: PROPRANOLOL HCL 10 MG TAB PO SCH ×2 (09:00→21:20)
[2018-05-15] MEDS: SPIRONOLACTONE 25 MG TABLET PO SCH (09:00)
[2018-05-15] MEDS: FUROSEMIDE 20 MG/ 2ML VIAL IV SCH ×2 (09:00→17:34)
--- NOTE | 2018-05-15 14:25 | PN ---
Date of Progress Note: 05/15/2018 Subjective: Patient was seen this morning for followup. Her breathing is overall better, but she di d not get any sleep last night and is requesting some medication to help her sleep. Denies any abdom inal pain, nausea, vomiting. The patient has significant generalized weakness and debility, which is chronic with significant deconditioning. She has lot of difficulty getting in and out of bed and kyle s noted multiple falls without injury at home and she is requesting hospital bed and I agree with her getting hospital bed for these reasons. Objective: Vital Signs: Reviewed. HEENT: Examination unremarkable. Lungs: Some rales noted in left lower lung region, right side clear. Not in respiratory distress. Heart: Sounds normal. Abdomen: Soft. Bowel sounds normal. No guarding, rigidity, tenderness, distention. Extremities: Leg edema present, but overall better than before. Laboratory Data: White count 1.9, hemoglobin 7.3, platelets 131. Sodium 141, potassium 3.9, chlorid e 107, bicarb 30, BUN 15, creatinine 1.1, glucose 92. Impression: 1.Pneumonia. 2.Biliary cirrhosis. 3.Debility, chronic. 4.Generalized weakness. 5.Pancytopenia. Plan: We will go ahead and continue current diuretic therapy. Continue current antibiotic which is Zosyn. We will repeat chest x-ray tomorrow. Consult Social Service to help make arrangements for ho spital bed and plan is to discharge her to go home on Thursday. The patient wanted to talk to me about hospice care at home and I did have a discussion today with her in presence of her as well a s brother and [id number]. All of her questions were answered and after discussing with her she in formed me that at this point she is not willing to go on hospice, but if her decision is different in future, she will let us know. We will go ahead and start her on alprazolam 0.25 mg at bedtime to he lp her with sleep. She is not taking any iron pill. Did not have any side effect, but she says she did not have any prescription at home and she was told that prescription that we usually send has mul tiple refills, but when she runs out of those refills, she will need to let us know to refill it agai n. So we will restart iron therapy for her. No need for blood transfusion at this point yet. DMITRI/MODL Voice ID: [id number] Report ID: [id number]
[2018-05-15] MEDS: ALPRAZOLAM 0.25 MG TABLET PO SCH (21:20)
[2018-05-15] MEDS: CITALOPRAM 10 MG TABLET PO SCH (21:20)
[2018-05-16] MEDS: PIPER/TAZO/NS 3.375gm 3.375 GM/100 ML BAG IVPB SCH ×3 (01:24→16:26)
[2018-05-16 05:47] LABS: Potassium 3.8 mmol/L (3.5-5.1)
[2018-05-16] MEDS ORDERED: POTASSIUM CL SA 10 MEQ TAB PO ONE (05:48)
[2018-05-16] MEDS: FUROSEMIDE 20 MG/ 2ML VIAL IV SCH ×2 (09:29→16:26)
[2018-05-16] MEDS: PROPRANOLOL HCL 10 MG TAB PO SCH ×2 (09:30→21:32)
[2018-05-16] MEDS: SPIRONOLACTONE 25 MG TABLET PO SCH (09:30)
[2018-05-16] MEDS: RANITIDINE 150 MG TABLET PO SCH (09:33)
--- NOTE | 2018-05-16 10:44 | RAD REPORT ---
EXAM DESCRIPTION: Shawna Single View05/16/2018 6:32 am CLINICAL HISTORY: Chest pain COMPARISON: May 13 FINDINGS: Mild improvement in the left basilar opacity. Small pleural effusions suspected. The heart is normal size IMPRESSION: Mild improvement in a left basilar pneumonia
--- NOTE | 2018-05-16 15:41 | PN ---
Date of Progress Note: 05/16/2018 Subjective: Patient was seen this morning for followup. No new complaints, problems reported by rashi lantigua, lying in bed, not in distress. Vital signs reviewed. Overall, she is feeling better. Shortne ss of breath has improved from the time of admission and now denies any complaints of shortness of br eath at all. Objective: HEENT Examination: Unremarkable. Lungs: Clear to auscultation except some rales noted in the left basal region, not in respiratory di stress. Heart: Sounds normal. Abdomen: Soft. Bowel sounds normal. No guarding, rigidity, tenderness, distention. Extremities Exam: No leg edema. Laboratory Data: Sodium 140, potassium 3.8, chloride 106, bicarb 29, BUN 17, creatinine 0.99, glucos e 79. Impression: 1.Pneumonia. 2.Urinary tract infection. 3.Biliary cirrhosis. 4.Pancytopenia. Plan: The patient had an order for urinalysis to be done when she was admitted. Unfortunately, urin e was never collected for urinalysis and it was sent just for the culture. Culture results came back antibiotic that she is getting for pneumonia, which is Zosyn. We will continue current I V antibiotics and other current medical management. We will get blood tomorrow. Possible discharge to go home tomorrow. I will see her tomorrow morning and possible discharge tomorrow. Det ails were discussed with the patient. DMITRI/MODL Voice ID: [id number] Report ID: [id number]
[2018-05-16] MEDS: ALPRAZOLAM 0.25 MG TABLET PO SCH (21:32)
[2018-05-16] MEDS: CITALOPRAM 10 MG TABLET PO SCH (21:33)
[2018-05-17] MEDS: PIPER/TAZO/NS 3.375gm 3.375 GM/100 ML BAG IVPB SCH ×3 (00:39→18:30)
[2018-05-17 06:46] LABS: Albumin 1.7 g/dL (3.4-5.0); Bilirubin Total 0.9 mg/dL (0.2-1.0); Potassium 3.8 mmol/L (3.5-5.1); Protein, Total 5.7 g/dL (6.4-8.2)
[2018-05-17 06:52] LABS: Protime INR 1.48
[2018-05-17 06:54] LABS: Absolute Lymphocytes (CBC) 0.3 K/uL (0.7-4.9); Absolute Monocytes 0.2 K/uL (0.1-1.3); Absolute Neutrophil 1.4 K/uL (1.8-8.0); Basophils % 0.6 % (0-1.3); Eosinophils % 4.2 % (0-4.4); Hematocrit 22.8 % (36.0-45.0); Lymphocytes % 16.7 % (15.3-44.8); MPV 9.5 fL (7.6-11.3); Monocytes % 10.1 % (3.3-12.3)
[2018-05-17] MEDS ORDERED: POTASSIUM 25 MEQ EFFERV TAB PO ONE (09:00)
[2018-05-17 09:04] LABS: Anisocytosis 2+; Blood Morphology Comment NOTED (NOT SEEN); Hypochromasia 1+; Platelet Estimate ADEQ; Poikilocytosis 1+; Polychromasia 1+
[2018-05-17] MEDS: PROPRANOLOL HCL 10 MG TAB PO SCH ×2 (09:22→20:18)
[2018-05-17] MEDS: RANITIDINE 150 MG TABLET PO SCH (09:22)
[2018-05-17] MEDS: SPIRONOLACTONE 25 MG TABLET PO SCH (09:22)
[2018-05-17] MEDS: DOXYCYCLINE 100 MG in NA CHLORIDE 0.9% 100 ML IVPB SCH ×2 (09:23→20:18)
[2018-05-17] MEDS: FUROSEMIDE 20 MG/ 2ML VIAL IV SCH ×2 (15:21→17:00)
[2018-05-17] MEDS: DIPHENHYDRAMINE 25 MG TAB/CAP PO SCH (15:22)
[2018-05-17] MEDS: ACETAMINOPHEN 500 MG TAB PO SCH (15:22)
[2018-05-17] MEDS ORDERED: NA CHLORIDE 0.9% 250 ML ONE ×2 (15:40→23:56)
[2018-05-17] MEDS: CITALOPRAM 10 MG TABLET PO SCH (20:18)
[2018-05-17] MEDS: ALPRAZOLAM 0.25 MG TABLET PO SCH (21:00)
[2018-05-18] MEDS: DIPHENHYDRAMINE 25 MG TAB/CAP PO SCH (00:04)
[2018-05-18] MEDS: ACETAMINOPHEN 500 MG TAB PO SCH (00:04)
--- NOTE | 2018-05-18 01:31 | PN ---
Date of Progress Note: 05/17/2018 Subjective: The patient was seen this morning for followup. No new complaints, problems reported by the patient. Lying in bed, not in any distress. Objective: Vital signs: Reviewed. HEENT: Examination unremarkable. Lungs: Rales noted in the left lower lung field. Not in respiratory distress. Heart: Sounds normal. Abdomen: Soft. Bowel sounds normal. No guarding, rigidity, tenderness, distention. Extremities: No leg edema. Laboratory Data: White count 2, hemoglobin 6.7, platelets 131. Sodium 139, potassium 3.8, chloride 106, bicarb 30, BUN 17, creatinine 1.10, glucose 82. Impression: 1.Anemia. 2.Pancytopenia. 3.Pneumonia. 4.Biliary cirrhosis. Plan: We will go ahead and continue current antibiotic which is Zosyn. The patient had a low-grade fever. Her urine culture results reviewed. She has 2 different bacteria in the urine culture now an d according to sensitivity results, we will go ahead and add doxycycline that will cover both of thes e bacteria and it will help with her pneumonia as well. I will see her tomorrow for followup. Depbrenda baez on her condition tomorrow, we will decide if we can discharge her to go home tomorrow or not. DMITRI/MODL Voice ID: [id number] Report ID: [id number]
[2018-05-18] MEDS: PIPER/TAZO/NS 3.375gm 3.375 GM/100 ML BAG IVPB SCH ×2 (02:30→10:23)
[2018-05-18 06:20] LABS: Hematocrit 31.9 % (36.0-45.0)
[2018-05-18 06:40] LABS: Potassium 3.8 mmol/L (3.5-5.1)
[2018-05-18] MEDS ORDERED: POTASSIUM CL SA 10 MEQ TAB PO ONE (08:00)
[2018-05-18] MEDS: PROPRANOLOL HCL 10 MG TAB PO SCH (09:00)
[2018-05-18] MEDS: RANITIDINE 150 MG TABLET PO SCH (10:23)
[2018-05-18] MEDS: FUROSEMIDE 20 MG/ 2ML VIAL IV SCH (10:23)
[2018-05-18] MEDS: SPIRONOLACTONE 25 MG TABLET PO SCH (10:23)
[2018-05-18] MEDS: DOXYCYCLINE 100 MG in NA CHLORIDE 0.9% 100 ML IVPB SCH (10:24)
[2018-05-18 13:08] VITALS: BP 135/63; TEMP 97.8
[2018-05-18 14:48] VITALS: O2SAT 94
--- NOTE | 2018-05-19 04:47 | DS ---
Date of Discharge: 05/18/2018 Disposition: Discharged to go home. Physical Examination: HEENT: Unremarkable. Lungs: Clear to auscultation. Heart: Sounds normal. Abdomen: Soft. Bowel sounds normal. No guarding, rigidity, tenderness, or distention. Extremities: No leg edema. Laboratory Data: Initial white count was 1.8, hemoglobin 7.2, platelets 90. Last hemoglobin today 9 .9, lowest hemoglobin was yesterday 6.7, and last white count yesterday 2. Platelet count yesterday 131. The patient did receive blood transfusion yesterday for anemia problem. Last chemistry today, sodium level 138, potassium 3.8, chloride 105, bicarb 25, BUN 18, creatinine 1.08, glucose 79. Urine culture grew Klebsiella and Enterococcus, both are sensitive to doxycycline. Hospital Course: A 72-year-old female patient with biliary cirrhosis, who came into our office on with her with almost 2 weeks history of increasing shortness of breath problem. Ple ase see dictated H and P for more information. After the patient was evaluated at office, decision w as made to admit her to hospital. The patient had significant edema of her lower back, abdominal wal l, as well as both lower extremities. Further evaluation revealed presence of left lower lobe pneumo marco. The patient has pancytopenia due to her underlying biliary cirrhosis. She has decided not to f ollow up with liver specialist in [place], and also has decided not to consider any liver transplant evaluation. She was prescribed iron supplement, but she has stopped taking it as she ran out of it, and did not call for refill. After she was admitted to the hospital, she was started on IV antibioti c, which was Zosyn, and urinalysis and urine culture was ordered. Unfortunately, her urine was never collected for urinalysis and it was only sent for urine culture, which grew 2 different bacteria. R epeat chest x-ray showed improvement in pneumonia with Zosyn. Yesterday, [employer] certified internetwork expert, she had low- grade fever, 100 degrees Fahrenheit, hemoglobin was 6.7, so we canceled discharge plan for yesterday, gave her packed red cell blood transfusion and added doxycycline. Her temperature came down, she re mained afebrile, and this morning, she is feeling much better. She has ongoing problem with insomnia , and fvtt-qin-rgtozam medication, melatonin and Tylenol PM has not helped, and she was requesting so me medication for insomnia, so we did start on alprazolam 0.25 mg at bedtime, and she has received 2 or 3 doses in the hospital, and she has responded very well, and reported that she gets a good night sleep throughout the night and she wakes up feeling refreshed, and has no daytime grogginess or drows iness. She requested hospital bed, which was requested with help of Social Service consult, and Soci al Service has notified us that insurance will not cover hospital bed unless she has diagnosis of INDEPENDENT DRIVER D, congestive heart failure, or aspiration, and she does not have any such diagnosis, and she was mad e aware of it today. She also wanted to talk to me about hospice care, and over the weekend, I talke d to her in presence of her family members, and after that she decided not to go on hospice care. He r overall prognosis is poor. Overall, she feels better. She was given IV Lasix and oral spironolact one for her edema problem, and she has responded very well. Her edema is due to her cirrhosis. Final Diagnoses: 1.Pneumonia. 2.Pancytopenia. 3.Biliary cirrhosis. 4.Insomnia. 5.Anemia. 6.Gastroesophageal reflux disease. 7.Hypertension. 8.Osteoarthritis, multiple sites. Discharge Medications/instructions: 1.Continue all prior home medications. 2.Take new medication alprazolam 0.25 mg at bedtime, Augmentin 875 mg twice a day for 1 week, doxycy wright 100 mg twice a day for 1 week, furosemide 40 mg p.o. daily, spironolactone 25 mg p.o. twice a d ay, Hemocyte Plus 1 p.o. daily, and continue all prior home medications. 3.Follow up at my office in 2 weeks. DMITRI/MODL Voice ID: [id number] Report ID: [id number]
== END 2018-05-18 16:00 | disposition home or self-care (01) | DRG 194 ==
LOC: 2ND 14:17
PROVIDERS: ADMIT Internal Medicine; ATTEND Internal Medicine
PROC: 30233N1 Transfusion of Nonautologous Red Blood Cells into Peripheral Vein, Percutaneous Approach (ICD-10-PCS; principal; 2018-05-17)
DX: J18.9 Pneumonia, unspecified organism (principal); D61.818 Other pancytopenia; J90 Pleural effusion, not elsewhere classified; D64.9 Anemia, unspecified; G47.00 Insomnia, unspecified; K21.9 Gastro-esophageal reflux disease without esophagitis; I10 Essential (primary) hypertension; M19.90 Unspecified osteoarthritis, unspecified site; Z66 Do not resuscitate; K74.5 Biliary cirrhosis, unspecified; Z91.81 History of falling; R53.81 Other malaise; B96.1 Klebsiella pneumoniae [K. pneumoniae] as the cause of diseases classified elsewhere; B95.2 Enterococcus as the cause of diseases classified elsewhere
CPT/HCPCS: 36415; 71045; 76700; 80048; 80053; 82140; 82607; 82746; 83735; 84443; 85014; 85018; 85025; 85610; 85730; 86850; 86900; 86901; 87077; 87086; 87088; 87186; 93970; J1940; J2543; J3475; P9016